=== PATIENT | female | born 1970 | race African-American/Black ===

== ENCOUNTER 2021-05-14 00:02 | Emergency (ER) | payer MEDICAID, OTHER ==
[~2021-05-14] VITALS: Ht 185.4 cm; Wt 87.1 kg
[2021-05-14 00:02] VITALS: BP 214/105
[2021-05-14] MEDS ORDERED: cloNIDine HCL 0.1 MG TAB PO ONE (01:15)
== END 2021-05-14 05:29 | disposition left against medical advice (07) ==
LOC: ER 00:02
DX: M54.5 Low back pain (principal); Z53.21 Procedure and treatment not carried out due to patient leaving prior to being seen by health care provider; X50.1XXA Overexertion from prolonged static or awkward postures, initial encounter; Y93.89 Activity, other specified; Y92.89 Other specified places as the place of occurrence of the external cause; Y99.8 Other external cause status

== ENCOUNTER → 2024-06-23 | Outpatient (CLI) | payer MEDICAID | END | disposition home or self-care (01) | LOC: Rad HDHVI 15:55 | PROVIDERS: ATTEND Internal Medicine Cardiovascular Disease | DX: I11.9 Hypertensive heart disease without heart failure (principal) | CPT/HCPCS: 93306 ==

== ENCOUNTER 2025-09-04 03:33 | Inpatient (IN) | payer MEDICAID ==
[~2025-09-04] VITALS: Ht 180.3 cm; Wt 78.2 kg
--- NOTE | 2025-09-04 04:04 | ED.PDOC ---
HPI Comments 54 year old female came to ER via EMS due to chest pains. Patient has history of hypertension, dyslipidemia, CVA 3x with left sided residuals. Patient is bed bound. About 2 hours prior to arrival, she developed chest pains, left sided, pressure, non radiating, 6/10 intensity. Blood pressure the was 190/110 mmHg REVIEW OF SYSTEMS: General: No fever, no chills, or fatigue HEENT: No sore throat, no earache, no congestion, no neck pain. Cardiac: (+) chest pain. No palpitations. Lungs: No shortness of breath, no cough. GI: No nausea, no vomiting, no diarrhea, no constipation, no abdominal pain : No dysuria, frequency, or urgency. No hematuria. Musculoskeletal: No joint pain , no joint swelling, no extremity edema. Skin: No rash, no itching. Neuro: No headache, no dizziness, no weakness EXAM: General: Awake, alert and oriented. No acute distress. Skin: Skin in warm, dry and intact. Appropriate color for ethnicity. HEENT: The head is normocephalic and atraumatic. Conjunctivae are clear without exudates or hemorrhage. Sclera is non-icteric. EOM are intact. No signs of nystagmus. Eyelids are normal in appearance without swelling or lesions. Oral mucosa is pink and moist Neck: The neck is supple with normal range of motion. No JVD. Cardiac: Heart rate and rhythm are normal. No murmurs, gallops, or rubs are auscultated. Positive anterior chest wall tenderness Respiratory: No signs of respiratory distress. Lung sounds are clear in all lobes bilaterally without rales, rhonchi, or wheezes. Abdominal: Abdomen is soft, non-tender without distention. Bowel sounds are present and normoactive in all four quadrants. Neurological: The patient is awake, alert and oriented to person, place, and time with normal speech. Speech is clear. There is no facial asymmetry. Left- sided deficits, chronic Psychiatric: Appropriate mood and affect. Good judgement and insight Chief Complaint: Chest Pain Time Seen by MD: 04:04 Reviewed Notes: Nurses Notes, Tube Dispatcher Notes Allergies: Coded Allergies: Morphine (Verified Allergy, Unknown, 03/31/24) Information Source: Patient Mode of Arrival: EMS Severity: Moderate Timing: Hours Duration: Intermittent Past Medical History PAST MEDICAL HISTORY: CKF, CVA, High Lipids, HTN Past Medical History (Other): Bedbound Surgical History: Denies all surgeries SALES PROPERTY MANAGER History: Denies all SALES PROPERTY MANAGER Hx Family History Family History: Reviewed,noncontributory to illness Social History Smoker: Non-Smoker Alcohol: Denies ETOH Use Drugs: Denies Drug Use Lives In: Home EKG EKG : Comments Sinus bradycardia No STEMI. Was a procedure done? Was a procedure done?: No CP Differential Dx Differential Diagnosis: Anxiety / Panic Attack Differential Diagnosis: Angina, Chest Wall Pain, Costochondritis, Esophageal reflux/spasm, Gastritis, Myocardial Infarction X-Ray, Labs, Meds, VS Vital Signs Date Time Temp Pulse Resp B/P (MAP) Pulse Ox O2 Delivery O2 Flow Rate FiO2 09/04/25 05:22 46 09/04/25 04:30 48 11 153/81 (105) 99 09/04/25 04:15 53 Room Air* 0 21 09/04/25 04:15 97.8 53 8 169/103 (125) 98 97.8 09/04/25 03:39 52 09/04/25 03:35 97.8 50 18 182/114 98 97.8 Lab Test 09/04/25 04:50 09/04/25 03:45 Range/Units Troponin I High Sensitivity 10 11 </=34 ng/L White Blood Count 4.7 4.4-10.8 10^3/uL Red Blood Count 3.75 L 4.0-5.20 10^6/uL Hemoglobin 11.3 L 12.2-16.2 g/dL Hematocrit 34.1 L 36.0-46.0 % Mean Corpuscular Volume 90.8 80.0-100.0 fL Mean Corpuscular Hemoglobin 30.2 28.0-32.0 pg Mean Corpuscular Hemoglobin Concent 33.2 32.0-36.0 g/dL Red Cell Distribution Width 13.4 11.8-14.3 % Platelet Count 334 140-450 10^3/uL Mean Platelet Volume 7.6 6.9-10.8 fL Neutrophils (%) (Auto) 53.3 37.0-80.0 % Lymphocytes (%) (Auto) 34.9 10.0-50.0 % Monocytes (%) (Auto) 8.2 0.0-12.0 % Eosinophils (%) (Auto) 3.2 0.0-7.0 % Basophils (%) (Auto) 0.4 0.0-2.0 % Neutrophils # (Auto) 2.5 1.6-8.6 10 ^3/uL Lymphocytes # (Auto) 1.6 0.4-5.4 10 ^3/uL Monocytes # (Auto) 0.4 0-1.3 10 ^3/uL Eosinophils # (Auto) 0.1 0-0.8 10 ^3/uL Basophils # (Auto) 0 0-0.2 10 ^3/uL Nucleated Red Blood Cells 0.0 % Sodium Level 140 136-145 mmol/L Potassium Level 4.1 3.5-5.1 mmol/L Chloride Level 102 98-107 mmol/L Carbon Dioxide Level 30 20-31 mmol/L Anion Gap 8 5-15 Blood Urea Nitrogen 17 9-23 mg/dL Creatinine 1.10 H 0.550-1.02 mg/dL Glomerular Filtration Rate Calc 60 >90 mL/min BUN/Creatinine Ratio 15.5 10.0-20.0 Serum Glucose 102 74-106 mg/dL Calcium Level 9.9 8.7-10.4 mg/dL B-Type Natriuretic Peptide 20.98 0-100 pg/mL Current Medications Medications (Trade) Dose Ordered Sig/Julienne Route Start Time Stop Time Status Last Admin Aspirin 324 mg ONCE ONCE PO 09/04/25 03:45 09/04/25 03:46 DC 09/04/25 04:14 Time of 1ST Reevaluation: 03:51 Reevaluation 1ST: Unchanged Patient Education/Counseling: Need For Follow Up Family Education/Counseling: No Family Present SEPSIS Sepsis Screen Physician Orders Electrocardigram (09/04/25 03:41) Electrocardigram (09/04/25 04:41) Electrocardigram (09/04/25 06:41) Chest Xray 1 View (09/04/25 03:43) Vital Signs Q1HR (09/04/25 03:43) Saline Lock (09/04/25 03:43) Center Customer Service Associate (09/04/25 ) Troponin-I Hs (09/04/25 06:43) Vital Signs Date Time Temp Pulse Resp B/P (MAP) Pulse Ox O2 Delivery O2 Flow Rate FiO2 09/04/25 05:22 46 09/04/25 04:30 48 11 153/81 (105) 99 09/04/25 04:15 53 Room Air* 0 21 09/04/25 04:15 97.8 53 8 169/103 (125) 98 97.8 09/04/25 03:39 52 09/04/25 03:35 97.8 50 18 182/114 98 97.8 Laboratory Tests Test 09/04/25 03:45 White Blood Count 4.7 10^3/uL (4.4-10.8) Medications Medications Dose Ordered Sig/Julienne Route Start Time Stop Time Status Last Admin Dose Admin Aspirin 324 mg ONCE ONCE PO 09/04/25 03:45 09/04/25 03:46 DC 09/04/25 04:14 Departure 1 Departure Time of Disposition: 04:45 Impression: Primary Impression: Chest pain Disposition: ADMITTED INPATIENT Condition: Stable Comments 54-year-old female with multiple risk factors and ongoing chest pain Patient admitted to hospitalist service for further treatment, evaluation and monitoring. Critical Care Note Critical Care Time?: Yes (35 min-critical care time only) Critical care comment: chest pain Stability Stability form required: No Heart Score Heart Score: Heart Score Response (Comments) Value History Moderate Suspicious 1 EKG Repolarization Disturb 1 Age 45-64 1 Risk Factors 1 or 2 risk factors 1 Troponin Normal limit 0 Total 4 I personally scribed for ZARA HILL MD ([email or web address]) on 09/04/25 at 04:04. Electronically submitted by Cr Martínez ([email or web address]). ZARA HILL MD Sep 04, 2025 04:04
[2025-09-04 04:13] LABS: Hematocrit 34.1 % (36.0-46.0); Hemoglobin 11.3 g/dL (12.2-16.2); Mean Corpuscular Hemoglobin 30.2 pg (28.0-32.0); Mean Corpuscular Volume 90.8 fL (80.0-100.0); Nucleated Red Blood Cells % 0.0 %
[2025-09-04 04:15] VITALS: PULSE 53
--- NOTE | 2025-09-04 04:16 | DVH ---
CHEST RADIOGRAPH Indication: cp Technique: Single frontal view of the chest was obtained COMPARISON: None FINDINGS: Lines and Tubes: None Lungs: Clear Pleura: No effusion. No pneumothorax. Cardiomediastinal contours: Unremarkable Bones: Unremarkable IMPRESSION: 1. No acute disease.
[2025-09-04 04:36] LABS: Anion Gap 8 (5-15); Carbon Dioxide 30 mmol/L (20-31); Chloride 102 mmol/L (98-107); Potassium 4.1 mmol/L (3.5-5.1); Sodium 140 mmol/L (136-145)
[2025-09-04 04:37] LABS: Calcium 9.9 mg/dL (8.7-10.4)
[2025-09-04 04:42] LABS: BUN/Creatinine Ratio 15.5 (10.0-20.0); Blood Urea Nitrogen 17 mg/dL (9-23); Glucose 102 mg/dL (74-106)
--- NOTE | 2025-09-04 05:55 | DVHHP2 ---
History of Present Illness Reason for Visit: Acute chest pain History of Present Illness The patient is a 54-year-old female bed-bound with past medical history of CKD, CVA 3 times with left-sided residuals, hyperlipidemia, and hypertension who presented to [facility] ED with complaint of chest pain associated with shortness of breaths. Patient reports experiencing left-sided chest pain, pressure in nature, rating 6/10 numeric scale, elevated blood pressure with systolic in the 190s, getting worse that prompted this visit. Patient was seen and evaluated in the ED, laboratory data shows WBC 4.7, hemoglobin 11.3, hematocrit 34.1, platelets 334, sodium 140, potassium 4.1, BUN 17, creatinine 1.10, glucose 102, calcium 9.9, troponin 10, BNP 20.98, blood pressure 189/103 trending down to 153/81, heart rate 53, temperature 97.8 F, O2 saturation 99% on room air. Chest x-ray show no acute disease. Please see medication orders section in the computer. On my assessment, patient denied chest pain at this moment, no headache, dizziness, diaphoresis, shortness of breaths, no diarrhea, nausea, vomiting, fever, no chills. Patient was admitted for further evaluation and medical management. Past Medical History CKD, CVA, High Lipids, HTN Past Surgical History Denies all surgeries Family History Reviewed, noncontributory to the management of this case. Past Social History The patient lives at home, denies smoking, alcohol or illicit drugs abuse. Review of Systems Constitutional: Yes: Weakness; No: Fever, Chills, Sweats, Malaise, Other Eyes: No: Pain, Vision change, Conjunctivae inflammation, Eyelid inflammation, Other, Redness ENT: No: Ear pain, Ear discharge, Nose pain, Nose discharge, Nose congestion, Mouth pain, Mouth swelling, Throat pain, Throat swelling, Other Respiratory: No: Cough, Dry, Shortness of breath, SOB with excertion, Wheezing, Hemoptysis, Pleuritic Pain, Sputum, Wheezing, Other Cardiovascular: Chest Pain; No: Palpitations, Orthopnea, Paroxysmal Noc. Dyspnea, Edema, Lt Headedness, Other Gastrointestinal: No: Nausea, Vomiting, Abdominal Pain, Diarrhea, Constipation, Melena, Hematochezia, Other Genitourinary: No Dysuria, No Frequency, No Incontinence, No Hematuria, No Retention, No Other Musculoskeletal: other (Bed-bound); No: neck pain, shoulder pain, arm pain, ba ck pain, hand pain, leg pain, foot pain Skin: No: Rash, Lesions, Jaundice, Bruising, Other Neurological: Weakness (Left-sided); No: Numbness, Incoordination, Change in speech, Confusion, Seizures, Other Allergies: Coded Allergies: Morphine (Verified Allergy, Unknown, 03/31/24) Exam Vital Signs Vital Signs Date Time Temp Pulse Resp B/P (MAP) Pulse Ox O2 Delivery O2 Flow Rate FiO2 09/04/25 05:22 46 09/04/25 04:30 11 153/81 (105) 99 09/04/25 04:15 Room Air* 0 21 09/04/25 04:15 97.8 97.8 General Appearance: Alert, Oriented X3, Cooperative, No acute distress HEENT: Atraumatic, PERRLA, EOMI, Mucous membr. moist/pink Respiratory: Normal air movement Cardiovascular: Regular rate, Normal S1, Normal S2, No murmurs Abdominal: Normal bowel sounds, Soft, No tenderness, No hepatospenomegaly, No masses Extremities: No clubbing, No cyanosis, No edema, Normal pulses, No tenderness/swelling, Other (Left-sided residuals) Skin: No rashes, No significant lesion Neuro: Normal speech, Normal tone, Sensation intact, Cranial nerves 3-12 NL, Reflexes 2+, Other (Generalized weakness) Psych/Mental Status: Mental status NL, Mood NL Labs/Xrays Labs Test 09/04/25 04:50 09/04/25 03:45 Range/Units Troponin I High Sensitivity 10 </=34 ng/L White Blood Count 4.7 4.4-10.8 10^3/uL Red Blood Count 3.75 L 4.0-5.20 10^6/uL Hemoglobin 11.3 L 12.2-16.2 g/dL Hematocrit 34.1 L 36.0-46.0 % Mean Corpuscular Volume 90.8 80.0-100.0 fL Mean Corpuscular Hemoglobin 30.2 28.0-32.0 pg Mean Corpuscular Hemoglobin Concent 33.2 32.0-36.0 g/dL Red Cell Distribution Width 13.4 11.8-14.3 % Platelet Count 334 140-450 10^3/uL Mean Platelet Volume 7.6 6.9-10.8 fL Neutrophils (%) (Auto) 53.3 37.0-80.0 % Lymphocytes (%) (Auto) 34.9 10.0-50.0 % Monocytes (%) (Auto) 8.2 0.0-12.0 % Eosinophils (%) (Auto) 3.2 0.0-7.0 % Basophils (%) (Auto) 0.4 0.0-2.0 % Neutrophils # (Auto) 2.5 1.6-8.6 10 ^3/uL Lymphocytes # (Auto) 1.6 0.4-5.4 10 ^3/uL Monocytes # (Auto) 0.4 0-1.3 10 ^3/uL Eosinophils # (Auto) 0.1 0-0.8 10 ^3/uL Basophils # (Auto) 0 0-0.2 10 ^3/uL Nucleated Red Blood Cells 0.0 % Sodium Level 140 136-145 mmol/L Potassium Level 4.1 3.5-5.1 mmol/L Chloride Level 102 98-107 mmol/L Carbon Dioxide Level 30 20-31 mmol/L Anion Gap 8 5-15 Blood Urea Nitrogen 17 9-23 mg/dL Creatinine 1.10 H 0.550-1.02 mg/dL Glomerular Filtration Rate Calc 60 >90 mL/min BUN/Creatinine Ratio 15.5 10.0-20.0 Serum Glucose 102 74-106 mg/dL Calcium Level 9.9 8.7-10.4 mg/dL B-Type Natriuretic Peptide 20.98 0-100 pg/mL PATIENT: ROOSEVELT CANCINOACCT: [id number] UNIT: [id number] : 1970 LOC: ER ROOM / BED: / AGE / SEX: 54 / F ADM STATUS: REG ER SERVICE [id number] ORDERING PHYSICIAN: ZARA HILL MD PROCEDURE(s): CXR1 - CHEST XRAY 1 VIEW REASON: cp ORDER NUMBER(s): [id number], ACCESSION NUMBER(s): [id number] CHEST RADIOGRAPH Indication: cp Technique: Single frontal view of the chest was obtained COMPARISON: None FINDINGS: Lines and Tubes: None Lungs: Clear Pleura: No effusion. No pneumothorax. Cardiomediastinal contours: Unremarkable Bones: Unremarkable IMPRESSION: 1. No acute disease. SEPSIS Sepsis Screen Date sepsis recognized/suspect: Sep 04, 2025 Time Sepsis recognized/suspect: 334 Recent Procedure: No On Antibiotic Therapy: No Respiratory Rate >20: No Heart Rate >90: No Temp<36 C (96.8 F) or >38.3 C: No SBP <90 or MAP <65 mmHG: No New Acute Mental Status Change: No Is the patient on CPAP, BIPAP,: No Physician Orders Electrocardigram (09/04/25 03:41) Electrocardigram (09/04/25 04:41) Electrocardigram (09/04/25 06:41) Chest Xray 1 View (09/04/25 03:43) Vital Signs Q1HR (09/04/25 03:43) Saline Lock (09/04/25 03:43) Tool Room Supervisor (09/04/25 ) Troponin-I Hs (09/04/25 06:43) Complete Blood Count (09/04/25 05:49) Comprehensive Metabolic Panel (09/04/25 05:49) Atorvastatin (Lipitor) (09/04/25 22:00) Aspirin Tablet (09/04/25 10:00) Hydralazine Injection (Apresoline Inject (09/04/25 06:00) Admit (09/04/25 05:49) Allergies (09/04/25 05:49) Code Status (09/04/25 05:49) Sodium Chloride Lock (Saline Lock Ns) (09/04/25 06:00) Oxygen Per Hour (09/04/25 05:49) Hydrocodone-Acet 5/325mg Tab (Whitetail 5/32 (09/04/25 06:00) Ondansetron Hcl (Zofran) (09/04/25 06:00) Docusate Sodium Capsule (Colace Capsule) (09/04/25 06:00) Fall Risk Precautions In Place QSHIFT (09/04/25 05:49) Complete Blood Count (09/05/25 04:00) Comprehensive Metabolic Panel (09/05/25 04:00) Cardiac Diet-2gna,Lofat,Lochol (09/04/25 Breakfast) Condition: Serious (09/04/25 05:49) Acetaminophen Tablet (Tylenol Tablet) (09/04/25 06:00) Vital Signs Date Time Temp Pulse Resp B/P (MAP) Pulse Ox O2 Delivery O2 Flow Rate FiO2 09/04/25 05:22 46 09/04/25 04:30 48 11 153/81 (105) 99 09/04/25 04:15 53 Room Air* 0 21 09/04/25 04:15 97.8 53 8 169/103 (125) 98 97.8 09/04/25 03:39 52 09/04/25 03:35 97.8 50 18 182/114 98 97.8 Laboratory Tests Test 09/04/25 03:45 White Blood Count 4.7 10^3/uL (4.4-10.8) Medications Medications Dose Ordered Sig/Julienne Route Start Time Stop Time Status Last Admin Dose Admin Aspirin 324 mg ONCE ONCE PO 09/04/25 03:45 09/04/25 03:46 DC 09/04/25 04:14 324 MG Assessment/Plan Assessment/Plan Acute chest pain Hypertensive urgency Generalized weakness Plan 1. Admit to telemetry units 2. Breathing treatment 3. Pain control management 4. Management of fluids and electrolytes 5. Consultation for hospitalist 6. Diagnostic tests chest x-ray 7. DVT prophylaxis-on aspirin 8. Repeat labs CBC, CMP in a.m. 9. Continue with current medical management 10. Treatment plan discussed with patient and RN. Patient verbalized understanding. Plan discussed with: Patient, Other (RN) My Orders Orders - JOSÉ MIGUEL CELAYA DNP Procedure Category Date Status Time Complete Blood Count LAB 09/04/25 Verified 05:49 Comprehensive LAB 09/04/25 Verified Metabolic Panel 05:49 Atorvastatin (Lipitor) PHA 09/04/25 Verified 22:00 Aspirin Tablet PHA 09/04/25 Verified 10:00 Hydralazine Injection PHA 09/04/25 Verified (Apresoline Inject 06:00 Admit ADMIT 09/04/25 Verified 05:49 Allergies CRISTIAN 09/04/25 Verified 05:49 Code Status CODE 09/04/25 Verified 05:49 Sodium Chloride Lock PHA 09/04/25 Verified (Saline Lock Ns) 06:00 Oxygen Per Hour RT 09/04/25 Verified 05:49 Hydrocodone-Acet PHA 09/04/25 Verified 5/325mg Tab (Whitetail 06:00 Ondansetron Hcl PHA 09/04/25 Verified (Zofran) 06:00 Docusate Sodium PHA 09/04/25 Verified Capsule (Colace 06:00 Fall Risk Precautions CRISTIAN 09/04/[address] 05:49 Complete Blood Count LAB 09/05/25 Verified 04:00 Comprehensive LAB 09/05/25 Verified Metabolic Panel 04:00 Cardiac DIET 09/04/25 Verified Diet-2gna,Lofat,Lochol Breakfast Condition: Serious CRISTIAN 09/04/25 Verified 05:49 Acetaminophen Tablet PHA 09/04/25 Verified (Tylenol Tablet) 06:00 Problem List: (1) Acute chest pain (2) Hypertensive urgency (3) Generalized weakness Date of Service: Sep 04, 2025 Billing Provider: JOSÉ MIGUEL CELAYA DNP Common Visit Codes: [id number] INP/OBS CARE (HIGH) JOSÉ MIGUEL CELAYA DNP Sep 04, 2025 05:55
[2025-09-04] MEDS ORDERED: ONDANSETRON HCL 4 MG/2 ML VIAL IV PRN (06:00)
[2025-09-04] MEDS ORDERED: NITROGLYCERIN 0.4 MG SL TAB SL PRN (06:00)
[2025-09-04] MEDS ORDERED: ACETAMINOPHEN 325 MG TAB PO PRN (06:00)
[2025-09-04] MEDS: SODIUM CHLOR 0.9% PF (SALINE LOCK) 10ML VIAL/SYR IV SCH (06:01)
[2025-09-04 07:31] LABS: Hematocrit 37.9 % (36.0-46.0); Hemoglobin 12.8 g/dL (12.2-16.2); Mean Corpuscular Hemoglobin 30.6 pg (28.0-32.0); Mean Corpuscular Volume 90.6 fL (80.0-100.0); Nucleated Red Blood Cells % 0.1 %
[2025-09-04 08:11] LABS: Alanine Aminotransferase 15 U/L (7-40); Albumin 4.4 g/dL (3.2-4.8); Alkaline Phosphatase 91 U/L (46-116); Anion Gap 9 (5-15); BUN/Creatinine Ratio 13.8 (10.0-20.0); Blood Urea Nitrogen 15 mg/dL (9-23); Calcium 9.9 mg/dL (8.7-10.4); Carbon Dioxide 26 mmol/L (20-31); Chloride 104 mmol/L (98-107); Glucose 94 mg/dL (74-106); Potassium 3.7 mmol/L (3.5-5.1); Sodium 139 mmol/L (136-145); Total Protein 7.8 g/dL (5.7-8.2)
[2025-09-04 08:12] LABS: Bilirubin, Total 0.4 mg/dL (0.2-1.0)
[2025-09-04 08:20] VITALS: PULSE 47; RESP 16; O2SAT 98
--- NOTE | 2025-09-04 14:40 | DVHPN2 ---
Subjective Patient continues to report having left-sided chest pain, described as squeezing, radiating 04/21. Reviewed: Care Plan, H&P, Labs, Medications, Previous Orders Changes from previous H/P or p: No Changes General: Per HPI Eyes: No Pain, No Vision change, No Conjunctivae inflammation, No Eyelid inflammation, No Other, No Redness ENT: No Ear pain, No Ear discharge, No Nose pain, No Nose discharge, No Nose congestion, No Mouth pain, No Mouth swelling, No Throat pain, No Throat swelling, No Other Cardiovascular: Chest Pain; No Palpitations, No Orthopnea, No Paroxysmal Noc. Dyspnea, No Edema, No Lt Headedness, No Other Respiratory: No Cough, No Dry, No Shortness of breath, No SOB with excertion, No Wheezing, No Hemoptysis, No Pleuritic Pain, No Sputum, No Other Gastrointestinal: No Nausea, No Vomiting, No Abdominal Pain, No Diarrhea, No Constipation, No Melena, No Hematochezia, No Other Genitourinary: No Dysuria, No Frequency, No Incontinence, No Hematuria, No Retention, No Other Musculoskeletal: other (Bed-bound); No neck pain, No shoulder pain, No arm pain, No back pain, No hand pain, No leg pain, No foot pain Skin: No Rash, No Lesions, No Jaundice, No Bruising, No Other Objective Vitals Vital Signs Date Time Temp Pulse Resp B/P (MAP) Pulse Ox O2 Delivery O2 Flow Rate FiO2 09/04/25 12:32 97.5 50 13 151/76 (101) 100 97.5 09/04/25 08:20 Room Air* 0 21 General Appearance: Alert, Oriented X3, Cooperative, mild distress HEENT: Atraumatic, PERRLA Lungs: Clear to auscultation, Normal air movement Cardiovascular: Normal S1, Normal S2 Abdomen: Normal bowel sounds, Soft, No tenderness, No hepatospenomegaly Genitourinary: No Apparent Abnormalities Musculoskeletal: Other (Left-sided hemiparesis) Psych/Mental Status: Mental status NL, Mood NL Medications Current Medications Medications Dose Ordered Sig/Julienne Route Start Time Stop Time Status Last Admin Dose Admin Atorvastatin Calcium 10 mg HS PO 09/04/25 22:00 Aspirin 81 mg DAILY PO 09/04/25 10:00 09/04/25 10:23 81 MG Hydralazine HCl 10 mg Q6HP PRN IV 09/04/25 06:00 Sodium Chloride 10 ml Q8HR IV 09/04/25 06:00 09/04/25 14:23 10 ML Acetaminophen/ Hydrocodone Bitart 1 tab Q4HP PRN PO 09/04/25 06:00 Ondansetron HCl 4 mg Q4HP PRN IV 09/04/25 06:00 Docusate Sodium 100 mg BIDPRN PRN PO 09/04/25 06:00 Acetaminophen 650 mg Q6HP PRN PO 09/04/25 06:00 Nitroglycerin 0.4 mg Q5MINP PRN SL 09/04/25 06:00 Laboratory Results Laboratory Tests 09/04/25 07:12 Chemistry Test 09/04/25 03:45 09/04/25 07:12 Calcium Level 9.9 mg/dL (8.7-10.4) 9.9 mg/dL (8.7-10.4) Albumin 4.4 g/dL (3.2-4.8) Total Protein 7.8 g/dL (5.7-8.2) Cardiac Markers Test 09/04/25 03:45 B-Type Natriuretic Peptide 20.98 pg/mL (0-100) LFT Test 09/04/25 07:12 Alanine Aminotransferase (ALT) 15 U/L (7-40) Alkaline Phosphatase 91 U/L (46-116) Aspartate Amino Transferase (AST) 14 U/L (13-40) Total Bilirubin 0.4 mg/dL (0.2-1.0) Labs and/or images reviewed: Labs reviewed by me, Image(s) reviewed by me Assessment/Plan Assessment/Plan Impression: -acute coronary syndrome -history of CVA with left-sided hemiparesis -bed-bound status -hypertensive crisis -? Tachy-adrian syndrome Plan: -cardiology consultation -antihypertensives, hold beta blockers -statin -echocardiogram -PUD/DVT prophylaxis -repeat labs in a.m. Total time spent with patient discussing and formulating plan of care: 35 minutes. This medical document was created using an electronic medical record system with [employer] system. Although this document has been carefully reviewed, there may still be some phonetic and typographical errors. These areas are purely typographical due to imperfections of the software programs, and do not reflect any compromise in the patient's medical care. Plan discussed with: Patient, Other (RN) Date of Service: Sep 04, 2025 Billing Provider: SATISH LINARES NP Common Visit Codes: [id number] INP/OBS CARE(HIGH) SATISH LINARES NP Sep 04, 2025 14:40
[2025-09-04] MEDS: LOSARTAN POTASSIUM 50 MG TAB PO ONE (15:42)
[2025-09-04] MEDS: HYDROcodone-ACET 5/325MG TAB PO PRN (17:38)
[2025-09-04] MEDS: hydrALAZINE HCL 20 MG/ML VL IV PRN (18:19)
[2025-09-04] MEDS: ATORVASTATIN 20 MG TAB PO SCH (22:49)
[2025-09-05] VITALS (9 sets, daily range): BP systolic 134–188; BP diastolic 78–110; PULSE 68–90; RESP 17–19; TEMP 97.2–98.3; O2SAT 90–98
[2025-09-05] MEDS ORDERED: HYDR-4902 PO (03:52)
[2025-09-05] MEDS ORDERED: BACL10TA PO (03:52)
[2025-09-05] MEDS: BACLOFEN 10 MG TAB PO PRN (06:37)
[2025-09-05 07:11] LABS: Hematocrit 35.4 % (36.0-46.0); Hemoglobin 12.3 g/dL (12.2-16.2); Mean Corpuscular Hemoglobin 30.6 pg (28.0-32.0); Mean Corpuscular Volume 88.2 fL (80.0-100.0); Nucleated Red Blood Cells % 0.1 %
[2025-09-05 07:32] LABS: Alanine Aminotransferase 15 U/L (7-40); Albumin 4.1 g/dL (3.2-4.8); Alkaline Phosphatase 84 U/L (46-116); Anion Gap 10 (5-15); BUN/Creatinine Ratio 17.3 (10.0-20.0); Bilirubin, Total 0.4 mg/dL (0.2-1.0); Blood Urea Nitrogen 19 mg/dL (9-23); Calcium 9.6 mg/dL (8.7-10.4); Carbon Dioxide 27 mmol/L (20-31); Chloride 102 mmol/L (98-107); Glucose 89 mg/dL (74-106); Potassium 3.6 mmol/L (3.5-5.1); Sodium 139 mmol/L (136-145); Total Protein 7.1 g/dL (5.7-8.2)
[2025-09-05] MEDS: LOSARTAN POTASSIUM 50 MG TAB PO SCH (09:23)
[2025-09-05 09:31] LABS: Triglycerides 135.0 mg/dL (< 150)
[2025-09-05 09:32] LABS: Magnesium 1.7 mg/dL (1.6-2.6)
[2025-09-05 09:33] LABS: Cholesterol 145.0 mg/dL (< 200); HDL Cholesterol 42.0 mg/dL (40-59)
--- NOTE | 2025-09-05 13:29 | DVHPN2 ---
Subjective Patient denies any pain Reviewed: Care Plan, H&P, Labs, Medications, Previous Orders Changes from previous H/P or p: Changes General: Per HPI Eyes: No Pain, No Vision change, No Conjunctivae inflammation, No Eyelid inflammation, No Other, No Redness ENT: No Ear pain, No Ear discharge, No Nose pain, No Nose discharge, No Nose congestion, No Mouth pain, No Mouth swelling, No Throat pain, No Throat swelling, No Other Cardiovascular: Chest Pain; No Palpitations, No Orthopnea, No Paroxysmal Noc. Dyspnea, No Edema, No Lt Headedness, No Other Respiratory: No Cough, No Dry, No Shortness of breath, No SOB with excertion, No Wheezing, No Hemoptysis, No Pleuritic Pain, No Sputum, No Other Gastrointestinal: No Nausea, No Vomiting, No Abdominal Pain, No Diarrhea, No Constipation, No Melena, No Hematochezia, No Other Genitourinary: No Dysuria, No Frequency, No Incontinence, No Hematuria, No Retention, No Other Musculoskeletal: other (Bed-bound); No neck pain, No shoulder pain, No arm pain, No back pain, No hand pain, No leg pain, No foot pain Skin: No Rash, No Lesions, No Jaundice, No Bruising, No Other Objective Vitals Vital Signs Date Time Temp Pulse Resp B/P (MAP) Pulse Ox O2 Delivery O2 Flow Rate FiO2 09/05/25 12:46 98.1 87 18 154/83 (106) 98 98.1 09/05/25 08:00 Room Air* 0 21 Intake/Output Intake and Output 09/05/25 07:00 Intake Total 0 ml Output Total 550 ml Balance -550 ml Intake Oral 0 ml Output Urine Total 550 ml General Appearance: Alert, Oriented X3, Cooperative, mild distress HEENT: Atraumatic, PERRLA Lungs: Clear to auscultation, Normal air movement Cardiovascular: Normal S1, Normal S2 Abdomen: Normal bowel sounds, Soft, No tenderness, No hepatospenomegaly Genitourinary: No Apparent Abnormalities Musculoskeletal: Other (Left-sided hemiparesis) Skin: Dry, Intact Psych/Mental Status: Mental status NL, Mood NL Medications Current Medications Medications Dose Ordered Sig/Julienne Route Start Time Stop Time Status Last Admin Dose Admin Atorvastatin Calcium 10 mg HS PO 09/04/25 22:00 09/04/25 22:49 10 MG Aspirin 81 mg DAILY PO 09/04/25 10:00 09/05/25 09:22 81 MG Hydralazine HCl 10 mg Q6HP PRN IV 09/04/25 06:00 09/05/25 07:18 10 MG Sodium Chloride 10 ml Q8HR IV 09/04/25 06:00 09/05/25 05:33 10 ML Acetaminophen/ Hydrocodone Bitart 1 tab Q4HP PRN PO 09/04/25 06:00 09/05/25 05:34 1 TAB Ondansetron HCl 4 mg Q4HP PRN IV 09/04/25 06:00 Docusate Sodium 100 mg BIDPRN PRN PO 09/04/25 06:00 Acetaminophen 650 mg Q6HP PRN PO 09/04/25 06:00 Nitroglycerin 0.4 mg Q5MINP PRN SL 09/04/25 06:00 Losartan Potassium 50 mg DAILY PO 09/05/25 10:00 09/05/25 09:23 50 MG Baclofen 10 mg Q8HP PRN PO 09/05/25 04:15 09/05/25 06:37 10 MG Laboratory Results Laboratory Tests 09/05/25 06:31 Chemistry Test 09/05/25 06:31 Albumin 4.1 g/dL (3.2-4.8) Calcium Level 9.6 mg/dL (8.7-10.4) Magnesium Level 1.7 mg/dL (1.6-2.6) Total Protein 7.1 g/dL (5.7-8.2) Lipid panel Test 09/05/25 06:31 Cholesterol Level 145 mg/dL (< 200) HDL Cholesterol 42 mg/dL (40-59) Triglycerides Level 135 mg/dL (< 150) LFT Test 09/05/25 06:31 Alanine Aminotransferase (ALT) 15 U/L (7-40) Alkaline Phosphatase 84 U/L (46-116) Aspartate Amino Transferase (AST) 13 U/L (13-40) Total Bilirubin 0.4 mg/dL (0.2-1.0) HgA1c, TSH Test 09/05/25 06:31 Hemoglobin A1c 5.0 % A1C (<5.7) Thyroid Stimulating Hormone (TSH) 0.63 uIU/mL (0.55-4.78) Labs and/or images reviewed: Labs reviewed by me, Image(s) reviewed by me Assessment/Plan Assessment/Plan Impression: -acute coronary syndrome -history of CVA with left-sided hemiparesis -bed-bound status -hypertensive crisis -? Tachy-adrian syndrome Plan: -cardiology consultation : Recommendations appreciated -PT evaluation -antihypertensives, hold beta blockers -statin : Pending -echocardiogram -PUD/DVT prophylaxis Social service consultation for possible SNF placement Total time spent with patient discussing and formulating plan of care: 35 minutes. This medical document was created using an electronic medical record system with [employer] dictation system. Although this document has been carefully reviewed, there may still be some phonetic and typographical errors. These areas are purely typographical due to imperfections of the software programs, and do not reflect any compromise in the patient's medical care. Plan discussed with: Patient, Other (RN) My Orders Orders - SATISH LINARES NP Procedure Category Date Status Time Losartan Tablet PHA 09/05/25 In Process (Cozaar Tablet) 10:00 Mrsa Screen TANVI 09/05/25 In Process 00:08 * Design Drafter Chief CONS 09/05/25 Transmitted Consult 02:55 * Cardiology Consult CONS 09/05/25 Transmitted 10:46 Date of Service: Sep 05, 2025 Billing Provider: SATISH LINARES NP Common Visit Codes: [id number] INP/OBS CARE(HIGH) SATISH LINARES NP Sep 05, 2025 13:29
--- NOTE | 2025-09-05 13:53 | DVHSR ---
APPROVED REPORT EXAM: LIMITED Two-dimensional and M-mode echocardiogram. Blood Pressure: 188/110 mmHg INDICATION Evaluate Cardiac Function RISK FACTORS Height: 5' 11", Weight: 172 DIMENSIONS LVDd3.7 (3.8-5.7cm)LA (2D)3.9 (1.9-4.0cm)Aortic Root (2.0-3.7cm) LVDs2.4 (2.5-4.0cm)LA (MM) (1.9-4.0cm)Aortic Cusp Exc (1.5-2.0cm) EF (%) 60.0 (55-70%)Rt. Atrium2.9 (1.9-4.0cm)Asc. Aorta cm IVSd1.7 (0.7-1.1cm)RV (D) (1.8-2.4cm) PWd1.5 (0.7-1.1cm) Mitral Valve MitralMitral Stenosis E/A ratio0.02D MVAcm2 Aortic Valve Aortic ValveAortic Stenosis LVOT Diameter2.5 (1.8-2.4cm)Doppler AVAcm2 Other Information Quality : Technically LimitedRhythm : Technically limited study due to body habitus, patient has left sided deficit from strokes, can not move or turn. Conclusion lvef 60% moderate LVH normal rv function moderate pericardial effusion, circumferential, no HD compromise
[2025-09-05] MEDS: DOCUSATE SOD 100 MG CAP PO PRN (21:18)
[2025-09-06] VITALS (8 sets, daily range): BP systolic 139–186; BP diastolic 67–101; PULSE 77–100; RESP 18–20; TEMP 97.8–98.4; O2SAT 90–100
[2025-09-06] MEDS: ENOXAPARIN SOD 40 MG/0.4 ML SYRINGE SC SCH (09:27)
--- NOTE | 2025-09-06 14:54 | DVHPN2 ---
Subjective Patient reporting spasming to left lower extremity Reviewed: Care Plan, H&P, Labs, Medications, Previous Orders Changes from previous H/P or p: Changes General: Per HPI Eyes: No Pain, No Vision change, No Conjunctivae inflammation, No Eyelid inflammation, No Other, No Redness ENT: No Ear pain, No Ear discharge, No Nose pain, No Nose discharge, No Nose congestion, No Mouth pain, No Mouth swelling, No Throat pain, No Throat swelling, No Other Cardiovascular: Chest Pain; No Palpitations, No Orthopnea, No Paroxysmal Noc. Dyspnea, No Edema, No Lt Headedness, No Other Respiratory: No Cough, No Dry, No Shortness of breath, No SOB with excertion, No Wheezing, No Hemoptysis, No Pleuritic Pain, No Sputum, No Other Gastrointestinal: No Nausea, No Vomiting, No Abdominal Pain, No Diarrhea, No Constipation, No Melena, No Hematochezia, No Other Genitourinary: No Dysuria, No Frequency, No Incontinence, No Hematuria, No Retention, No Other Musculoskeletal: other (Bed-bound); No neck pain, No shoulder pain, No arm pain, No back pain, No hand pain, No leg pain, No foot pain Skin: No Rash, No Lesions, No Jaundice, No Bruising, No Other Objective Vitals Vital Signs Date Time Temp Pulse Resp B/P (MAP) Pulse Ox O2 Delivery O2 Flow Rate FiO2 09/06/25 13:00 98.3 89 20 140/67 (91) 99 98.3 09/06/25 08:00 Room Air* 0 21 Intake/Output Intake and Output 09/06/25 07:00 Intake Total 860 ml Output Total 1200 ml Balance -340 ml Intake Oral 860 ml Output Urine Total 1200 ml # Bowel Movements 1 General Appearance: Alert, Oriented X3, Cooperative, mild distress HEENT: Atraumatic, PERRLA Lungs: Clear to auscultation, Normal air movement Cardiovascular: Normal S1, Normal S2 Abdomen: Normal bowel sounds, Soft, No tenderness, No hepatospenomegaly Genitourinary: No Apparent Abnormalities Musculoskeletal: Other (Left-sided hemiparesis) Skin: Dry, Intact Psych/Mental Status: Mental status NL, Mood NL Medications Current Medications Medications Dose Ordered Sig/Julienne Route Start Time Stop Time Status Last Admin Dose Admin Atorvastatin Calcium 10 mg HS PO 09/04/25 22:00 09/05/25 21:17 10 MG Aspirin 81 mg DAILY PO 09/04/25 10:00 09/06/25 09:28 81 MG Hydralazine HCl 10 mg Q6HP PRN IV 09/04/25 06:00 09/06/25 06:32 10 MG Sodium Chloride 10 ml Q8HR IV 09/04/25 06:00 09/06/25 14:27 10 ML Acetaminophen/ Hydrocodone Bitart 1 tab Q4HP PRN PO 09/04/25 06:00 09/06/25 13:40 1 TAB Ondansetron HCl 4 mg Q4HP PRN IV 09/04/25 06:00 Docusate Sodium 100 mg BIDPRN PRN PO 09/04/25 06:00 09/05/25 21:18 100 MG Acetaminophen 650 mg Q6HP PRN PO 09/04/25 06:00 Nitroglycerin 0.4 mg Q5MINP PRN SL 09/04/25 06:00 Losartan Potassium 50 mg DAILY PO 09/05/25 10:00 09/06/25 09:30 50 MG Baclofen 10 mg Q8HP PRN PO 09/05/25 04:15 09/05/25 23:07 10 MG Enoxaparin Sodium 40 mg DAILY SC 09/06/25 10:00 09/06/25 09:27 40 MG Amlodipine Besylate 10 mg DAILY PO 09/07/25 10:00 UNV Laboratory Results Laboratory Tests 09/05/25 06:31 Microbiology Microbiology Date/Time Source Procedure Growth Status 09/05/25 00:06 Nose MRSA Screen - Final Complete Labs and/or images reviewed: Labs reviewed by me, Image(s) reviewed by me Assessment/Plan Assessment/Plan Impression: -acute coronary syndrome -history of CVA with left-sided hemiparesis -bed-bound status -hypertensive crisis -? Tachy-adrian syndrome Plan: Events: No further bradycardic issues. Patient hypertensive. -continue losartan, add amlodipine 10 mg -start baclofen for leg spasms -cardiology consultation : Recommendations appreciated -PT evaluation -antihypertensives, hold beta blockers -echocardiogram : Reviewed -PUD/DVT prophylaxis Social service consultation for possible SNF placement Total time spent with patient discussing and formulating plan of care: 35 minutes. This medical document was created using an electronic medical record system with Dragon computerized dictation system. Although this document has been carefully reviewed, there may still be some phonetic and typographical errors. These areas are purely typographical due to imperfections of the software programs, and do not reflect any compromise in the patient's medical care. Plan discussed with: Patient, Other (RN) My Orders Orders - SATISH LINARES NP Procedure Category Date Status Time L Shoulder 2+ View XY 09/06/25 Logged Xray 14:46 Amlodipine Tablet PHA 09/06/25 Logged (Norvasc Tablet) 15:00 Amlodipine Tablet PHA 09/07/25 Logged (Norvasc Tablet) 10:00 Date of Service: Sep 06, 2025 Billing Provider: SATISH LINARES NP Common Visit Codes: [id number] INP/OBS CARE(HIGH) SATISH LINARES NP Sep 06, 2025 14:54
--- NOTE | 2025-09-06 16:27 | DVH ---
CLINICAL INDICATION: disclocation TECHNIQUE: 3 radiographic views of the left shoulder were obtained. Comparison: None FINDINGS/IMPRESSION: Bony alignment appears normal No fracture or dislocation is seen No abnormal soft tissue calcifications.
[2025-09-06] MEDS ORDERED: BACLOFEN 10 MG TAB PO SCH (22:00)
[2025-09-07] VITALS (7 sets, daily range): BP systolic 109–165; BP diastolic 75–110; PULSE 84–105; RESP 16–19; TEMP 97.7–98.3; O2SAT 96–100
--- NOTE | 2025-09-07 11:50 | ECG ---
[facility] Test Date: 2025-09-04 Test Time: 05:22:26 Pat Name: ROOSEVELT CANCINO Department: [facility] ED Patient ID: [id number] Room: 0296T B Gender: F Clinical Lab Assistant: COURTNEY : 1970 Requested By: ZARA HILL Order Number: [id number] Reading MD: Duane Lewis Measurements Intervals [place] Rate: 46 P: 81 [place]: 176 QRS: -1 QRSD: 108 T: 16 QT: 469 QTc: 411 Interpretive Statements Sinus bradycardia Abnormal R-wave progression, late transition Electronically Signed On 09-07-2025 14:56:27 PDT by Duane Lewis Please click the below link to view image of tracing.
--- NOTE | 2025-09-07 11:50 | ECG ---
[facility] Test Date: 2025-09-04 Test Time: 06:40:46 Pat Name: ROOSEVELT CANCINO Department: [facility] ED Patient ID: [facility]-[id number] Room: 0296T B Gender: F Transfusion Nurse: COURTNEY : 1970 Requested By: ZARA HILL Order Number: [id number] Reading MD: Duane Lewis Measurements Intervals [place] Rate: 158 P: 0 ME: 40 QRS: -18 QRSD: 94 T: 174 QT: 391 QTc: 634 Interpretive Statements Sinus tachycardia Ventricular tachycardia, unsustained Long R-R with ventricular escape Borderline left axis deviation Probable anterior infarct, age indeterminate Prolonged QT interval Electronically Signed On 09-07-2025 14:56:46 PDT by Duane Lewis Please click the below link to view image of tracing.
--- NOTE | 2025-09-07 11:50 | ECG ---
[facility] Test Date: 2025-09-04 Test Time: 03:39:55 Pat Name: ROOSEVELT CANCINO Department: [facility] ED Patient ID: [facility]-[id number] Room: 0296T B Gender: F Equipment Cleaner: COURTNEY : 1970 Requested By: ZARA HILL Order Number: [id number] Reading MD: Duane Lewis Measurements Intervals [place] Rate: 52 P: 90 DC: 178 QRS: 8 QRSD: 111 T: 22 QT: 446 QTc: 415 Interpretive Statements Sinus rhythm Ventricular premature complex Abnormal R-wave progression, late transition Electronically Signed On 09-07-2025 14:56:20 PDT by Duane Lewis Please click the below link to view image of tracing.
[2025-09-07] MEDS ORDERED: LOSA-535 PO (13:51)
[2025-09-07] MEDS ORDERED: AMLO1TAB23 PO (13:51)
--- NOTE | 2025-09-07 13:55 | DVHDS2 ---
Discharge Summary Date of Admission Sep 04, 2025 at 05:49 Date of Discharge: Sep 07, 2025 Admitting Diagnosis Chest pain Labs/Diagnostic Data: Laboratory Results Test 09/05/25 06:31 09/04/25 16:12 09/04/25 07:12 09/04/25 03:45 White Blood Count 4.2 10^3/uL (4.4-10.8) Red Blood Count 4.02 10^6/uL (4.0-5.20) Hemoglobin 12.3 g/dL (12.2-16.2) Hematocrit 35.4 % (36.0-46.0) Mean Corpuscular Volume 88.2 fL (80.0-100.0) Mean Corpuscular Hemoglobin 30.6 pg (28.0-32.0) Mean Corpuscular Hemoglobin Concent 34.7 g/dL (32.0-36.0) Red Cell Distribution Width 13.3 % (11.8-14.3) Platelet Count 343 10^3/uL (140-450) Mean Platelet Volume 7.7 fL (6.9-10.8) Neutrophils (%) (Auto) 57.0 % (37.0-80.0) Lymphocytes (%) (Auto) 30.6 % (10.0-50.0) Monocytes (%) (Auto) 8.6 % (0.0-12.0) Eosinophils (%) (Auto) 3.4 % (0.0-7.0) Basophils (%) (Auto) 0.4 % (0.0-2.0) Neutrophils # (Auto) 2.4 10 ^3/uL (1.6-8.6) Lymphocytes # (Auto) 1.3 10 ^3/uL (0.4-5.4) Monocytes # (Auto) 0.4 10 ^3/uL (0-1.3) Eosinophils # (Auto) 0.1 10 ^3/uL (0-0.8) Basophils # (Auto) 0 10 ^3/uL (0-0.2) Nucleated Red Blood Cells 0.1 % Sodium Level 139 mmol/L (136-145) Potassium Level 3.6 mmol/L (3.5-5.1) Chloride Level 102 mmol/L (98-107) Carbon Dioxide Level 27 mmol/L (20-31) Anion Gap 10 (5-15) Blood Urea Nitrogen 19 mg/dL (9-23) Creatinine 1.10 mg/dL (0.550-1.02) Glomerular Filtration Rate Calc 60 mL/min (>90) BUN/Creatinine Ratio 17.3 (10.0-20.0) Serum Glucose 89 mg/dL (74-106) Hemoglobin A1c 5.0 % A1C (<5.7) Calcium Level 9.6 mg/dL (8.7-10.4) Magnesium Level 1.7 mg/dL (1.6-2.6) Total Bilirubin 0.4 mg/dL (0.2-1.0) Aspartate Amino Transferase (AST) 13 U/L (13-40) Alanine Aminotransferase (ALT) 15 U/L (7-40) Alkaline Phosphatase 84 U/L (46-116) Total Protein 7.1 g/dL (5.7-8.2) Albumin 4.1 g/dL (3.2-4.8) Triglycerides Level 135 mg/dL (< 150) Cholesterol Level 145 mg/dL (< 200) LDL Cholesterol 73 mg/dL (< 100) HDL Cholesterol 42 mg/dL (40-59) Thyroid Stimulating Hormone (TSH) 0.63 uIU/mL (0.55-4.78) POC Glucose 82 mg/dl (70-106) Troponin I High Sensitivity 11 ng/L (</=34) B-Type Natriuretic Peptide 20.98 pg/mL (0-100) Other Laboratory Tests 09/05/25 06:31 Brief Hx & Hospital Course: History of Present Illness The patient is a 54-year-old female bed-bound with past medical history of CKD, CVA 3 times with left-sided residuals, hyperlipidemia, and hypertension who presented to [facility] ED with complaint of chest pain associated with shortness of breaths. Patient reports experiencing left-sided chest pain, pressure in nature, rating 6/10 numeric scale, elevated blood pressure with systolic in the 190s, getting worse that prompted this visit. Patient was seen and evaluated in the ED, laboratory data shows WBC 4.7, hemoglobin 11.3, hematocrit 34.1, platelets 334, sodium 140, potassium 4.1, BUN 17, creatinine 1.10, glucose 102, calcium 9.9, troponin 10, BNP 20.98, blood pressure 189/103 trending down to 153/81, heart rate 53, temperature 97.8 F, O2 saturation 99% on room air. Chest x-ray show no acute disease. Please see medication orders section in the computer. On my assessment, patient denied chest pain at this moment, no headache, dizziness, diaphoresis, shortness of breaths, no diarrhea, nausea, vomiting, fever, no chills. Patient was admitted for further evaluation and medical management. Course of hospitalization: Patient had titration of p.o. medications with cessation of all beta blockers. Patient's bradycardia has improved. Patient is currently on Cozaar 100 mg p.o. daily as well as amlodipine 10 mg p.o. daily with the patient's blood pressure markedly improved. Troponins has been negative x3. EKG unremarkable. Patient will be discharged home on home health services for physical therapy. Patient has been without any documented or reported chest pain since having blood pressure control. Physical examination General: Alert and Oriented x3. No acute distress. Well-nourished. Eyes: EOMI. Anicteric. HENT: Moist mucous membranes. Lungs: Clear to auscultation bilaterally. No accessory muscle use. Cardiovascular: Regular rate and rhythm. No murmur. No JVD. Abdomen: Soft, non-tender and non-distended. No palpable masses. Extremities: No edema. Non-tender. Skin: No rashes or lesions. Warm. Neurologic: No focal neurological deficits. CN II-XII grossly intact, but not individually tested. Psychiatric: Cooperative. Appropriate mood and affect. Total time spent with patient discussing and formulating plan of care: 35 minutes. This medical document was created using an electronic medical record system with [employer] dictation system. Although this document has been carefully reviewed, there may still be some phonetic and typographical errors. These areas are purely typographical due to imperfections of the software programs, and do not reflect any compromise in the patient's medical care. Condition at Discharge: Fair Final Diagnosis/Problems List Hypertensive crisis with chest pain -acute coronary syndrome ruled out -history of CVA with left-sided hemiparesis -bed-bound status -hypertensive crisis -? Tachy-adrian syndrome Discharge Disposition: Home with Health Services Discharge Instruct/Medications Diet: Cardiac 2g Na,low cholest Activity: No Restrictions, As Tolerated Follow Up/Referral: Follow up PCP in 1-2 weeks Medications: Stop Previous antihypertensive regimen given bradycardia and uncontrolled blood pressure. Cozaar 100 mg p.o. daily. Amlodipine 10 mg p.o. daily Scheduled Amlodipine Besylate (Amlodipine Besylate), 1 TAB PO DAILY Losartan Potassium (Losartan Potassium), 1 TAB PO DAILY Scheduled PRN Baclofen (Baclofen), 10 MG PO Q8HP PRN for FOR MUSCLE SPASM, (Reported) Miscellaneous Medications Hydrocodone-Acetaminophen (Hydrocodone Bitartrate/AC 5-325 mg), 1 TAB PO, (Reported) Discharge Statement: "Patient was advised to return to the ER or call 911 if any headaches, dizziness, shortness of breath, chest pain, abdominal pain, bleeding, fevers, or worsening of medical condition. Patient was counseled about treatment plan, medications, possible side effects, patientverbalized understanding. All questions were answered to the best of my ability. This discharge took greater then 30 minutes in planning, reviewing documentation, counseling the patient, and discussing with other team members." ASSESSMENT ASSESSMENT Assessment Hypertensive crisis with chest pain Date of Service: Sep 07, 2025 Billing Provider: SATISH LINARES NP Common Visit Codes: [id number] DISCH DAY >30min SATISH LINARES NP Sep 07, 2025 13:55
[2025-09-08 01:00] VITALS: BP 176/100; PULSE 70; RESP 17; TEMP 97.3; O2SAT 98
[2025-09-08 05:00] VITALS: BP 161/98; PULSE 91; RESP 19; TEMP 97.7; O2SAT 99
[2025-09-08 08:00] VITALS: PULSE 94; PULSE 95; RESP 17; O2SAT 94
[2025-09-08 08:13] VITALS: BP 179/100; TEMP 36.5
[2025-09-08 09:00] VITALS: BP 115/83; PULSE 94; RESP 17; TEMP 97.6; O2SAT 94
[2025-09-08] MEDS: LOSARTAN POTASSIUM 50 MG TAB PO SCH (10:00)
--- NOTE | 2025-09-08 12:24 | DVHPN2 ---
Subjective Patient reporting spasming to left lower extremity Reviewed: Care Plan, H&P, Labs, Medications, Previous Orders Changes from previous H/P or p: No Changes General: Per HPI Eyes: No Pain, No Vision change, No Conjunctivae inflammation, No Eyelid inflammation, No Other, No Redness ENT: No Ear pain, No Ear discharge, No Nose pain, No Nose discharge, No Nose congestion, No Mouth pain, No Mouth swelling, No Throat pain, No Throat swelling, No Other Cardiovascular: Chest Pain; No Palpitations, No Orthopnea, No Paroxysmal Noc. Dyspnea, No Edema, No Lt Headedness, No Other Respiratory: No Cough, No Dry, No Shortness of breath, No SOB with excertion, No Wheezing, No Hemoptysis, No Pleuritic Pain, No Sputum, No Other Gastrointestinal: No Nausea, No Vomiting, No Abdominal Pain, No Diarrhea, No Constipation, No Melena, No Hematochezia, No Other Genitourinary: No Dysuria, No Frequency, No Incontinence, No Hematuria, No Retention, No Other Musculoskeletal: other (Bed-bound); No neck pain, No shoulder pain, No arm pain, No back pain, No hand pain, No leg pain, No foot pain Skin: No Rash, No Lesions, No Jaundice, No Bruising, No Other Objective Vitals Vital Signs Date Time Temp Pulse Resp B/P (MAP) Pulse Ox O2 Delivery O2 Flow Rate FiO2 09/08/25 09:00 97.6 94 17 115/83 (94) 94 97.6 09/08/25 08:00 Room Air* 0 21 Intake/Output Intake and Output 09/08/25 07:00 Intake Total 814 ml Balance 814 ml Intake Oral 814 ml # Voids 5 # Bowel Movements 3 General Appearance: Alert, Oriented X3, Cooperative, mild distress HEENT: Atraumatic, PERRLA Lungs: Clear to auscultation, Normal air movement Cardiovascular: Normal S1, Normal S2 Abdomen: Normal bowel sounds, Soft, No tenderness, No hepatospenomegaly Genitourinary: No Apparent Abnormalities Musculoskeletal: Other (Left-sided hemiparesis) Skin: Dry, Intact Psych/Mental Status: Mental status NL, Mood NL Medications Current Medications Medications Dose Ordered Sig/Julienne Route Start Time Stop Time Status Last Admin Dose Admin Atorvastatin Calcium 10 mg HS PO 09/04/25 22:00 09/07/25 21:51 10 MG Aspirin 81 mg DAILY PO 09/04/25 10:00 09/07/25 09:31 81 MG Hydralazine HCl 10 mg Q6HP PRN IV 09/04/25 06:00 09/08/25 00:33 10 MG Sodium Chloride 10 ml Q8HR IV 09/04/25 06:00 09/08/25 05:47 10 ML Acetaminophen/ Hydrocodone Bitart 1 tab Q4HP PRN PO 09/04/25 06:00 09/08/25 05:47 1 TAB Ondansetron HCl 4 mg Q4HP PRN IV 09/04/25 06:00 Docusate Sodium 100 mg BIDPRN PRN PO 09/04/25 06:00 09/07/25 09:30 100 MG Acetaminophen 650 mg Q6HP PRN PO 09/04/25 06:00 Nitroglycerin 0.4 mg Q5MINP PRN SL 09/04/25 06:00 Baclofen 10 mg Q8HP PRN PO 09/05/25 04:15 09/07/25 09:31 10 MG Enoxaparin Sodium 40 mg DAILY SC 09/06/25 10:00 09/07/25 09:30 40 MG Amlodipine Besylate 10 mg DAILY PO 09/07/25 10:00 09/07/25 09:34 10 MG Losartan Potassium 100 mg DAILY PO 09/08/25 10:00 Laboratory Results Laboratory Tests 09/05/25 06:31 Microbiology Microbiology Date/Time Source Procedure Growth Status 09/05/25 00:06 Nose MRSA Screen - Final Complete Labs and/or images reviewed: Labs reviewed by me, Image(s) reviewed by me Assessment/Plan Assessment/Plan Impression: -acute coronary syndrome -history of CVA with left-sided hemiparesis -bed-bound status -hypertensive crisis -? Tachy-adrian syndrome Plan: Events: No further bradycardic issues. Patient hypertensive. -continue losartan, add amlodipine 10 mg -start baclofen for leg spasms -cardiology consultation : Recommendations appreciated -PT evaluation -antihypertensives, hold beta blockers -echocardiogram : Reviewed -PUD/DVT prophylaxis -patient discharged to home health services for persistent has been rehabilitation. Patient follows blood pressure improved with amlodipine and Cozaar. Total time spent with patient discussing and formulating plan of care: 35 minutes. This medical document was created using an electronic medical record system with [employer] computerized dictation system. Although this document has been carefully reviewed, there may still be some phonetic and typographical errors. These areas are purely typographical due to imperfections of the software programs, and do not reflect any compromise in the patient's medical care. Plan discussed with: Patient, Other (RN) My Orders Orders - SATISH LINARES NP Procedure Category Date Status Time Losartan Tablet PHA 09/08/25 In Process (Cozaar Tablet) 10:00 Discharge DISCHARGE 09/07/25 Transmitted 13:45 * Drafting Supervisor CONS 09/07/25 Transmitted Consult Date of Service: Sep 08, 2025 Billing Provider: SATISH LINARES NP Common Visit Codes: [id number] INP/OBS CARE(HIGH) SATISH LINARES NP Sep 08, 2025 12:24
== END 2025-09-08 13:03 | disposition home or self-care (01) | DRG 199 ==
LOC: EDBD 03:33 → EDSEX 03:33 → ER 03:33 → OVERFLOW 05:49 → TELE-WESTW 21:39
PROVIDERS: ADMIT Nurse Practitioner Acute Care; ATTEND Nurse Practitioner Acute Care
DX: I16.1 Hypertensive emergency (principal); R53.2 Functional quadriplegia; I49.5 Sick sinus syndrome; I69.354 Hemiplegia and hemiparesis following cerebral infarction affecting left non-dominant side; I12.9 Hypertensive chronic kidney disease with stage 1 through stage 4 chronic kidney disease, or unspecified chronic kidney disease; N18.9 Chronic kidney disease, unspecified; E78.5 Hyperlipidemia, unspecified; Z74.01 Bed confinement status; Z79.899 Other long term (current) drug therapy; Z88.5 Allergy status to narcotic agent
CPT/HCPCS: 36415; 71045; 73030; 80048; 80053; 80061; 82962; 83036; 83735; 83880; 84443; 84484; 85025; 87081; 93005; 93306; 97163; 99291; G0378

== ENCOUNTER 2025-10-21 20:27 | Inpatient (IN) | payer MEDICAID ==
[~2025-10-21] VITALS: Ht 170.2 cm; Wt 75.2 kg
[~2025-10-21 20:27] MED LIST: AMLO1TAB23 PO; BACL10TA PO; HYDR-4902 PO; LOSA-535 PO
--- NOTE | 2025-10-21 21:02 | ED.PDOC ---
History of Present Illness HPI Comments 54 y/o bed-bound F is BIBA for c/c of flare up of chronic left hip pain. Per EMS personnel report, patient has a history of CVA w/left sided deficits and contractions, seizures, and hypertension and reports flare up of pain after running out of her baclofen prescription, recently. No reported recent falls or injuries. On scene vitals were commented to have been stable and within normal limits, with exception to a systolic pressure and heart rate in the 200's and 120's with PVC's, respectively. Initial blood glucose of 112. No further symptoms endorsed. Chief Complaint: Lower Extremity Time Seen by MD: 20:50 Reviewed Notes: Nurses Notes, Medications, Allergies Allergies: Coded Allergies: Morphine (Verified Allergy, Unknown, 03/31/24) Home Meds Active Scripts Amlodipine Besylate (Amlodipine Besylate) 10 Mg Tab, 1 TAB PO DAILY for 30 Days, #30 TAB 5 Refills Prov:SATISH LINARES GEOSCIENCE SPECIALIST 09/07/25 Losartan Potassium (Losartan Potassium) 100 Mg Tab, 1 TAB PO DAILY for 30 Days, #30 TAB 5 Refills Prov:SATISH LINARES GEOSCIENCE SPECIALIST 09/07/25 Reported Medications Hydrocodone-Acetaminophen (Hydrocodone Bitartrate/AC 5-325 mg) 1 Tab Tab, 1 TAB PO, TAB 09/05/25 Baclofen (Baclofen) 10 Mg Tab, 10 MG PO Q8HP PRN for FOR MUSCLE SPASM for 30 Days, MG 09/05/25 Information Source: Patient Mode of Arrival: Ambulatory Severity: Moderate Timing: Hours Duration: Since onset Prehospital treatment: None Past Medical History PAST MEDICAL HISTORY: CKF, CVA, High Lipids, HTN Surgical History: Denies all surgeries LEAD PHP DEVELOPER History: Denies all LEAD PHP DEVELOPER Hx Family History Family History: Reviewed,noncontributory to illness Social History Smoker: Non-Smoker Alcohol: Denies ETOH Use Drugs: Denies Drug Use Lives In: Home All Other Systems: Reviewed and Negative (As per HPI) Physical Exam General Appearance: No Apparent Distress, Normal HEENT: Normal ENT Inspection, Pharynx Normal, TMs Normal Neck: Full Range of Motion, Non-Tender, Normal, Normal Inspection Respiratory: Chest Non-Tender, Lungs Clear, No Accessory Muscle Use, No Respiratory Distress, Normal Breath Sounds Cardiovascular: No Edema, No JVD, No Murmur, No Gallop, Normal Peripheral Pulses, Regular Rate/Rhythm Breast Exam: Deferred Gastrointestinal: No Organomegaly, Non Tender, No Pulsatile Mass, Normal Bowel Sounds, Soft Genitalia: Deferred Pelvic: Deferred Rectal: Deferred Extremities: No calf tenderness, Normal capillary refill, Normal inspection, Normal range of motion, Non-tender, No pedal edema Musculoskeletal : Apperance: Normal Neurologic: Alert, mixer whipped topping II-XII nml as Tested, Normal Affect, Normal Mood, Other (left hemiparesis unchanged per family ) Cerebellar Function: Normal Reflexes: Normal Skin: Dry, Normal Color, Warm Lymphatic: No Adenopathy Was a procedure done? Was a procedure done?: No Differential Dx Considerations may include: chronic pain flare up, medication noncompliant, hypertensive emergency, among others X-Ray, Labs, Meds, VS Vital Signs Date Time Temp Pulse Resp B/P (MAP) Pulse Ox O2 Delivery O2 Flow Rate FiO2 10/21/25 21:10 159/85 10/21/25 20:34 115 10/21/25 20:30 98.2 118 20 200/102 98 98.2 Lab Test 10/21/25 23:05 10/21/25 21:04 Range/Units Lactic Acid Level Pending 2.1 *H 0.4-2.0 mmol/L White Blood Count 6.7 4.4-10.8 10^3/uL Red Blood Count 4.57 4.0-5.20 10^6/uL Hemoglobin 13.6 12.2-16.2 g/dL Hematocrit 39.9 36.0-46.0 % Mean Corpuscular Volume 87.3 80.0-100.0 fL Mean Corpuscular Hemoglobin 29.7 28.0-32.0 pg Mean Corpuscular Hemoglobin Concent 34.0 32.0-36.0 g/dL Red Cell Distribution Width 13.3 11.8-14.3 % Platelet Count 398 140-450 10^3/uL Mean Platelet Volume 7.4 6.9-10.8 fL Neutrophils (%) (Auto) 79.0 37.0-80.0 % Lymphocytes (%) (Auto) 14.2 10.0-50.0 % Monocytes (%) (Auto) 5.4 0.0-12.0 % Eosinophils (%) (Auto) 1.2 0.0-7.0 % Basophils (%) (Auto) 0.2 0.0-2.0 % Neutrophils # (Auto) 5.3 1.6-8.6 10 ^3/uL Lymphocytes # (Auto) 1.0 0.4-5.4 10 ^3/uL Monocytes # (Auto) 0.4 0-1.3 10 ^3/uL Eosinophils # (Auto) 0.1 0-0.8 10 ^3/uL Basophils # (Auto) 0 0-0.2 10 ^3/uL Nucleated Red Blood Cells 0.1 % Prothrombin Time 10.2 9.3-11.8 sec Prothrombin Time INR 0.96 0.9-1.15 Activated Partial Thromboplast Time 26.2 24.5-34.5 SEC Sodium Level 143 136-145 mmol/L Potassium Level 3.7 3.5-5.1 mmol/L Chloride Level 106 98-107 mmol/L Carbon Dioxide Level 27 20-31 mmol/L Anion Gap 10 5-15 Blood Urea Nitrogen 10 9-23 mg/dL Creatinine 1.16 H 0.550-1.02 mg/dL Glomerular Filtration Rate Calc 56 >90 mL/min BUN/Creatinine Ratio 8.6 L 10.0-20.0 Serum Glucose 151 H 74-106 mg/dL Calcium Level 10.3 8.7-10.4 mg/dL Magnesium Level 1.8 1.6-2.6 mg/dL Total Bilirubin 0.2 0.2-1.0 mg/dL Aspartate Amino Transferase (AST) 12 L 13-40 U/L Alanine Aminotransferase (ALT) 14 7-40 U/L Alkaline Phosphatase 111 46-116 U/L Total Protein 7.8 5.7-8.2 g/dL Albumin 4.5 3.2-4.8 g/dL Current Medications Medications (Trade) Dose Ordered Sig/Julienne Route Start Time Stop Time Status Last Admin Sodium Chloride 1,000 ml @ 1,000 mls/hr Q1H ONCE IVB 10/21/25 20:45 10/21/25 21:44 DC 10/21/25 21:10 Hydralazine HCl (Apresoline Injection) 20 mg ONCE ONCE IV 10/21/25 20:45 10/21/25 20:50 DC 10/21/25 21:10 Baclofen (Liorisal Tablet) 10 mg ONCE ONCE PO 10/21/25 21:00 10/21/25 21:01 DC 10/21/25 21:10 [place] [address] Ph: [phone] DIAGNOSTIC IMAGING Diagnostic Imaging Report : [id number] Signed PATIENT: ROOSEVELT CANCINO ACCT: [id number] UNIT: [id number] : 1970 LOC: ER ROOM / BED: / AGE / SEX: 54 / F ADM STATUS: REG ER SERVICE 42 ORDERING PHYSICIAN: YUE NORTH MD PROCEDURE(s): CXR1 - CHEST XRAY 1 VIEW REASON: SOB ORDER NUMBER(s): [id number], ACCESSION NUMBER(s): [id number] CHEST RADIOGRAPH INDICATION: SOB TECHNIQUE: 1 view COMPARISON: XY CHEST XRAY 1 VIEW on DOS: 09/04/25 FINDINGS: Suboptimal patient positioning significantly limits assessment. Lines and Tubes: None. Lungs/Pleura: No obvious consolidation or pleural abnormality. Cardiomediastinum: Heart size is not well assessed. Other: No acute osseous abnormality. IMPRESSION: 1. Essentially nondiagnostic chest radiograph. No obvious acute abnormality. ATED BY: FIORDALIZA TERAN MD DICTATED DATE/TIME: 10/21/252129 SIGNED BY: FIORDALIZA TERAN MD SIGNED DATE/TIME: 10/21/252129 CC: Time of 1ST Reevaluation: 21:20 Reevaluation 1ST: Unchanged Patient Education/Counseling: Diagnosis, Treatment Family Education/Counseling: No Family Present SEPSIS Sepsis Screen Physician Orders Urinalysis (10/21/25 20:43) Blood Culture (10/21/25 20:43) Straightcath If Unable To Void (10/21/25 20:43) Chest Xray 1 View (10/21/25 20:43) Electrocardigram (10/21/25 20:57) Vital Signs Date Time Temp Pulse Resp B/P (MAP) Pulse Ox O2 Delivery O2 Flow Rate FiO2 10/21/25 21:10 159/85 10/21/25 20:34 115 10/21/25 20:30 98.2 118 20 200/102 98 98.2 Laboratory Tests Test 10/21/25 21:04 10/21/25 23:05 Lactic Acid Level 2.1 mmol/L (0.4-2.0) *H Pending White Blood Count 6.7 10^3/uL (4.4-10.8) Medications Medications Dose Ordered Sig/Julienne Route Start Time Stop Time Status Last Admin Dose Admin Baclofen 10 mg ONCE ONCE PO 10/21/25 21:00 10/21/25 21:01 DC 10/21/25 21:10 Hydralazine HCl 20 mg ONCE ONCE IV 10/21/25 20:45 10/21/25 20:50 DC 10/21/25 21:10 Sodium Chloride 1,000 ml @ 1,000 mls/hr Q1H ONCE IVB 10/21/25 20:45 10/21/25 21:44 DC 10/21/25 21:10 Departure 1 Departure Time of Disposition: 23:11 Impression: Primary Impression: Closed left femoral fracture Additional Impressions: Dehydration UTI (urinary tract infection) Disposition: ADMITTED INPATIENT Admit to: Med Surg Condition: Guarded Discharged With: Self Comments 54-year-old female had a closed left femur fracture and was sent home with a Barnett catheter. Now the patient is unable to get around at home and has a UTI related to the catheter. I suspect dehydration. Patient will need admission for supportive care and further workup. Critical Care Note Critical Care Time?: Yes (35 min-critical care time only) Critical care comment: Total critical care time: Approximately 36 minutes Due to a high probability of clinically significant, life threatening deterioration, the patient required my highest level of preparedness to intervene emergently and I personally spent this critical care time directly and personally managing the patient. This critical care time included obtaining a history; examining the patient; pulse oximetry; ordering and review of studies; arranging urgent treatment with development of a management plan; evaluation of patient's response to treatment; frequent reassessment; and, discussions with other providers. This critical care time was performed to assess and manage the high probability of imminent, life-threatening deterioration that could result in multi-organ failure. It was exclusive of separately billable procedures and treating other patients. Stability Stability form required: No Heart Score Heart Score: Heart Score Response (Comments) Value History N/A 0 EKG N/A 0 Age N/A 0 Risk Factors N/A 0 Troponin N/A 0 Total 0 I personally scribed for YUE NORTH MD ([email or web address]) on 10/21/25 at 21:02. Electronically submitted by Neil Clifton ([email or web address]). I personally scribed for YUE NORTH MD ([email or web address]) on 10/21/25 at 22:53. Electronically submitted by Neil Clifton ([email or web address]). YUE NORTH MD Oct 21, 2025 21:02
[2025-10-21] MEDS: SODIUM CHLORIDE 0.9% 1,000 ML IVB ONE (21:10)
[2025-10-21] MEDS: hydrALAZINE HCL 20 MG/ML VL IV ONE (21:10)
[2025-10-21] MEDS: BACLOFEN 10 MG TAB PO ONE (21:10)
[2025-10-21 21:16] LABS: Hematocrit 39.9 % (36.0-46.0); Hemoglobin 13.6 g/dL (12.2-16.2); Mean Corpuscular Hemoglobin 29.7 pg (28.0-32.0); Mean Corpuscular Volume 87.3 fL (80.0-100.0); Nucleated Red Blood Cells % 0.1 %
[2025-10-21 21:31] LABS: INR 0.96 (0.9-1.15); Partial Thromboplastin Time 26.2 SEC (24.5-34.5); Prothrombin Time 10.2 sec (9.3-11.8)
--- NOTE | 2025-10-21 21:33 | DVH ---
CHEST RADIOGRAPH INDICATION: SOB TECHNIQUE: 1 view COMPARISON: XY CHEST XRAY 1 VIEW on DOS: 09/04/25 FINDINGS: Suboptimal patient positioning significantly limits assessment. Lines and Tubes: None. Lungs/Pleura: No obvious consolidation or pleural abnormality. Cardiomediastinum: Heart size is not well assessed. Other: No acute osseous abnormality. IMPRESSION: 1. Essentially nondiagnostic chest radiograph. No obvious acute abnormality.
[2025-10-21 21:34] LABS: Alanine Aminotransferase 14 U/L (7-40); Albumin 4.5 g/dL (3.2-4.8); Alkaline Phosphatase 111 U/L (46-116); Anion Gap 10 (5-15); BUN/Creatinine Ratio 8.6 (10.0-20.0); Blood Urea Nitrogen 10 mg/dL (9-23); Calcium 10.3 mg/dL (8.7-10.4); Carbon Dioxide 27 mmol/L (20-31); Chloride 106 mmol/L (98-107); Magnesium 1.8 mg/dL (1.6-2.6); Potassium 3.7 mmol/L (3.5-5.1); Sodium 143 mmol/L (136-145); Total Protein 7.8 g/dL (5.7-8.2)
[2025-10-21 21:42] LABS: Bilirubin, Total 0.2 mg/dL (0.2-1.0); Glucose 151 mg/dL (74-106)
[2025-10-21 21:44] LABS: Lactic Acid w/Reflex 2.1 mmol/L (0.4-2.0)
[2025-10-21 21:50] VITALS: RESP 22; O2SAT 96
[2025-10-21] MEDS ORDERED: NITROGLYCERIN 0.4 MG SL TAB SL PRN (23:45)
[2025-10-21] MEDS ORDERED: MORPHINE SULFATE INJ 2 MG/ml SYRG IV PRN (23:45)
--- NOTE | 2025-10-21 23:47 | DVHHPRES ---
History of Present Illness Resident Creating Document: BREANA RIVERA RESIDENT History of Present Illness Hafsa Luna, a 54-year-old female with past medical history of stroke with left-sided weakness, intractable left hip pain, hypertension presented to the ER with the complaints of intractable left hip pain. She reports that her son who graduated few months back helps her with ambulation. She does not use walker or wheelchair. She takes antihypertensive medication. On review of systems she reports having constipation. She denies any chest pain, shortness of breath, fever, recent sick contacts, urinary symptoms or any other complaints at this time. She reports being admitted in the hospital recently due to multiple episodes of seizures, brain MRI was done during that admission which reveals no abnormalities detected. Past medical history: As above Past surgical history: 2 sections Allergies: Morphine Home medications: Amlodipine, lisinopril Marijuana: Occasionally Alcohol: Occasionally, last drink few months back. Full code status Review of Systems Gastrointestinal: Constipation Musculoskeletal: other (Left hip pain) Allergies: Coded Allergies: Morphine (Verified Allergy, Unknown, 03/31/24) Medications Current Medications Medications Dose Ordered Sig/Julienne Route Start Time Stop Time Status Last Admin Dose Admin Nitroglycerin 0.4 mg Q5MINP PRN SL 10/21/25 23:45 Morphine Sulfate 2 mg Q30M PRN IV 10/21/25 23:45 UNV Exam Vital Signs Vital Signs Date Time Temp Pulse Resp B/P (MAP) Pulse Ox O2 Delivery O2 Flow Rate FiO2 10/21/25 23:22 119 18 119/76 (90) 94 10/21/25 20:30 98.2 98.2 Exam Pt is lying on bed General Appearance: Alert, Oriented X3, Cooperative, Mild distress HEENT: Atraumatic, Mucous membranes moist/pink Respiratory: Clear to auscultation, Normal air movement, No added sounds Cardiovascular: Regular rate, Normal S1, Normal S2, No murmurs Abdominal/ : Active bowel sounds, Soft, no distention, no tenderness Extremities: No edema, Normal pulses, No tenderness/swelling, right-sided extremity strength normal, left-sided neurologic exam limited due to intractable pain. Skin: No Significant rash, except past surgical scars Neuro: Normal speech, sensorimotor deficits none Psych/Mental Status: Mental status NL, Mood NL Nurse was there as milk and cream grader during examination Labs/Xrays Labs Test 10/21/25 23:05 10/21/25 21:04 Range/Units Lactic Acid Level 1.9 0.4-2.0 mmol/L White Blood Count 6.7 4.4-10.8 10^3/uL Red Blood Count 4.57 4.0-5.20 10^6/uL Hemoglobin 13.6 12.2-16.2 g/dL Hematocrit 39.9 36.0-46.0 % Mean Corpuscular Volume 87.3 80.0-100.0 fL Mean Corpuscular Hemoglobin 29.7 28.0-32.0 pg Mean Corpuscular Hemoglobin Concent 34.0 32.0-36.0 g/dL Red Cell Distribution Width 13.3 11.8-14.3 % Platelet Count 398 140-450 10^3/uL Mean Platelet Volume 7.4 6.9-10.8 fL Neutrophils (%) (Auto) 79.0 37.0-80.0 % Lymphocytes (%) (Auto) 14.2 10.0-50.0 % Monocytes (%) (Auto) 5.4 0.0-12.0 % Eosinophils (%) (Auto) 1.2 0.0-7.0 % Basophils (%) (Auto) 0.2 0.0-2.0 % Neutrophils # (Auto) 5.3 1.6-8.6 10 ^3/uL Lymphocytes # (Auto) 1.0 0.4-5.4 10 ^3/uL Monocytes # (Auto) 0.4 0-1.3 10 ^3/uL Eosinophils # (Auto) 0.1 0-0.8 10 ^3/uL Basophils # (Auto) 0 0-0.2 10 ^3/uL Nucleated Red Blood Cells 0.1 % Prothrombin Time 10.2 9.3-11.8 sec Prothrombin Time INR 0.96 0.9-1.15 Activated Partial Thromboplast Time 26.2 24.5-34.5 SEC Sodium Level 143 136-145 mmol/L Potassium Level 3.7 3.5-5.1 mmol/L Chloride Level 106 98-107 mmol/L Carbon Dioxide Level 27 20-31 mmol/L Anion Gap 10 5-15 Blood Urea Nitrogen 10 9-23 mg/dL Creatinine 1.16 H 0.550-1.02 mg/dL Glomerular Filtration Rate Calc 56 >90 mL/min BUN/Creatinine Ratio 8.6 L 10.0-20.0 Serum Glucose 151 H 74-106 mg/dL Calcium Level 10.3 8.7-10.4 mg/dL Magnesium Level 1.8 1.6-2.6 mg/dL Total Bilirubin 0.2 0.2-1.0 mg/dL Aspartate Amino Transferase (AST) 12 L 13-40 U/L Alanine Aminotransferase (ALT) 14 7-40 U/L Alkaline Phosphatase 111 46-116 U/L Total Protein 7.8 5.7-8.2 g/dL Albumin 4.5 3.2-4.8 g/dL SEPSIS Sepsis Screen Date sepsis recognized/suspect: Oct 21, 2025 Time Sepsis recognized/suspect: 2149 Recent Procedure: No On Antibiotic Therapy: No Respiratory Rate >20: No Heart Rate >90: Yes Temp<36 C (96.8 F) or >38.3 C: No SBP <90 or MAP <65 mmHG: No New Acute Mental Status Change: No Is the patient on CPAP, BIPAP,: No Physician Orders Urinalysis (10/21/25 20:43) Blood Culture (10/21/25 20:43) Straightcath If Unable To Void (10/21/25 20:43) Chest Xray 1 View (10/21/25 20:43) Electrocardigram (10/21/25 20:57) Admit (10/21/25 23:41) Nitroglycerin Sublingual (Ntrostat Subli (10/21/25 23:45) Morphine Sulfate Injection (10/21/25 23:45) Oxygen By Nasal Cannula (10/21/25 23:41) Stat Ekg For Chest Pain (10/21/25 23:41) Notify Md Of Changes From Base (10/21/25 23:41) Sheet Rock Installer For 24 Hours (10/21/25 23:41) Emergency Dysrhythmia Protocol (10/21/25 23:41) Rhythm Strips Once Every Shift (10/21/25 23:41) Vital Signs Date Time Temp Pulse Resp B/P (MAP) Pulse Ox O2 Delivery O2 Flow Rate FiO2 10/21/25 23:22 119 18 119/76 (90) 94 10/21/25 21:10 159/85 10/21/25 20:34 115 10/21/25 20:30 98.2 118 20 200/102 98 98.2 Laboratory Tests Test 10/21/25 21:04 10/21/25 23:05 Lactic Acid Level 2.1 mmol/L (0.4-2.0) *H 1.9 mmol/L (0.4-2.0) White Blood Count 6.7 10^3/uL (4.4-10.8) Medications Medications Dose Ordered Sig/Julienne Route Start Time Stop Time Status Last Admin Dose Admin Baclofen 10 mg ONCE ONCE PO 10/21/25 21:00 10/21/25 21:01 DC 10/21/25 21:10 10 MG Hydralazine HCl 20 mg ONCE ONCE IV 10/21/25 20:45 10/21/25 20:50 DC 10/21/25 21:10 20 MG Sodium Chloride 1,000 ml @ 1,000 mls/hr Q1H ONCE IVB 10/21/25 20:45 10/21/25 21:44 DC 10/21/25 21:10 1,000 MLS/HR Assessment/Plan Assessment/Plan History of Stroke with left-sided weakness Hypertensive heart disease Intractable left hip pain Acute complicated UTI History of recent seizures with hospital admission Constipation -lisinopril, amlodipine -ceftriaxone IV daily -[place] -left hip x-ray: No acute fractures -head CT: No acute findings -chest x-ray: No acute findings -urinalysis: Reveals urinary infection -lactulose -vitamin-D, TSH, vitamin B12 ordered GI prophylaxis: Pantoprazole DVT prophylaxis: SCDs Diet: Cardiac Goals of care discussed with the patient for more than 27 minutes: Full code sta tus Case discussed with , patient and RN Plan discussed with: Patient, Other (RN) My Orders Orders - BREANA RIVERA RESIDENT Procedure Category Date Status Time Admit ADMIT 10/21/25 Transmitted 23:41 Nitroglycerin PHA 10/21/25 In Process Sublingual (Ntrostat 23:45 Morphine Sulfate PHA 10/21/25 Logged Injection 23:45 Oxygen By Nasal RT 10/21/25 Transmitted Cannula 23:41 Stat Ekg For Chest CRISTIAN 10/21/25 In Process Pain 23:41 Notify Of Changes CRISTIAN 10/21/25 In Process From Base 23:41 Sheet Rock Installer For CRISTIAN 10/21/25 In Process 24 Hours 23:41 Emergency Dysrhythmia [facility] 10/21/25 In Process Protocol 23:41 Rhythm Strips Once [facility] 10/21/25 In Process Every Shift 23:41 Visit Coding STANDARD RES Billing Provider: BECCA LATHAM MD Date of Service if different f: Oct 21, 2025 Common Visit Codes: [id number] INP/OBS CARE (HIGH) Secondary Visit Codes: [id number] CARE PLAN 30 MINUTES BREANA RIVERA RESIDENT Oct 21, 2025 23:47
[2025-10-22] MEDS: HYDROcodone-ACET 5/325MG TAB PO ONE (01:25)
[2025-10-22] MEDS: BACLOFEN 10 MG TAB PO PRN (01:26)
--- NOTE | 2025-10-22 01:41 | DVH ---
CLINICAL INDICATION: R/o fracture TECHNIQUE: 3 views XY L HIP COMPLETE XRAY COMPARISON: None FINDINGS: Suboptimal patient positioning, nonstandard images, soft tissue attenuation and beam underpenetration, and osteopenia limits assessment. No obvious fracture or dislocation. Moderate appearing osteoarthrosis. Unremarkable soft tissues. IMPRESSION: 1. Limited exam without obvious acute abnormality of the left hip.
[2025-10-22 02:03] LABS: Urine Protein, UAD Negative (Negative)
[2025-10-22] MEDS: LACTULOSE 20Gm/30ML SOLN PO ONE (02:29)
[2025-10-22 02:32] LABS: Cannabinoid Screen, Urine Neg (NEGATIVE)
[2025-10-22 02:33] LABS: Amphetamine Screen, Urine Neg (NEGATIVE); Barbiturate Scree,Urine Neg (NEGATIVE); Benzodiazephine Screen, Urine Neg (NEGATIVE); Cocaine Screen, Urine Neg (NEGATIVE); Opiate Scree,Urine Neg (NEGATIVE); Phencyclidine Screen, Urine Neg (NEGATIVE)
--- NOTE | 2025-10-22 06:24 | ECG ---
[facility] Test Date: 2025-10-21 Test Time: 20:34:53 Pat Name: ROOSEVELT CANCINO Department: ED Room: [address] [place] [address] Gender: F Rat Exterminator: NATACHA : 1970 Requested By: EMERGENCY EMERGENCY Order Number: [id number] Reading MD: Duane Lewis Measurements Intervals [place] Rate: 115 P: 53 IL: 156 QRS: 32 QRSD: 98 T: 250 QT: 326 QTc: 451 Interpretive Statements Sinus tachycardia LAE, consider biatrial enlargement Abnormal T, consider ischemia, diffuse leads Baseline wander in lead(s) V2 Electronically Signed On 10-22-2025 20:11:56 PST by Duane Lewis Please click the below link to view image of tracing.
[2025-10-22] MEDS: HYDROcodone-ACET 5/325MG TAB PO PRN (07:10)
[2025-10-22] MEDS: PANTOPRAZOLE 40 MG TAB PO SCH (07:40)
[2025-10-22] MEDS ORDERED: MORPHINE SULFATE INJ 2 MG/ml SYRG IV PRN ×2 (08:15→11:15)
--- NOTE | 2025-10-22 08:28 | DVH ---
EXAM: CT HEAD WITHOUT CONTRAST INDICATION: R/o hemorrhagic stroke. TECHNIQUE: CT of the head without intravenous contrast. Coronal and sagittal reformatted images are submitted. Radiation Dose : 1. Head: CT Dose: CTDI volume is 55.84 mGy. Dose-length product is 987.0 mGy*cm The dose indicators for CT are the volume Computed Tomography (CT) Dose Index (CTDIvol) and the Dose Length Product (DLP), and are measured in units of mGy and mGy-cm, respectively. These indicators are not patient dose, but values generated from the CT scanner acquisition factors. The report includes radiation exposure data for exposures received during this examination. All CT scans at this medical facility are performed using dose modulation techniques as appropriate to a performed exam including the following: Automated exposure control was utilized; adjustment of the MA and/or KV according to patient size; and use of iterative reconstruction technique. COMPARISON: No prior images are available for comparison at this time. FINDINGS: There is no evidence of acute intracranial hemorrhage, extra-axial collection, mass effect, midline shift, herniation or hydrocephalus. There is an old right MCA and MICROSOFT APPLICATION DEVELOPER infarct. Global cortical volume loss. There are periventricular and subcortical hypodensities, nonspecific, but likely reflecting sequelae of chronic microvascular ischemic changes. The ventricles, sulci and cisterns are age appropriate. The hernandez-white differentiation is intact. The visualized paranasal sinuses and mastoid air cells are clear. No depressed calvarial fracture. The surrounding soft tissues are unremarkable. IMPRESSION: 1. No evidence of acute intracranial hemorrhage, mass effect or hydrocephalus. 2. Old right MCA and MICROSOFT APPLICATION DEVELOPER infarcts.
[2025-10-22] MEDS: LABETALOL HCL 20 MG/4 ML VL IV ONE (08:59)
[2025-10-22] MEDS: CARVEDILOL 3.125 MG TAB PO SCH ×2 (09:24→21:38)
[2025-10-22] MEDS ORDERED: LORazepam 2MG/ML-1ML VIAL IV PRN (09:45)
[2025-10-22] MEDS: LACTULOSE 20Gm/30ML SOLN PO SCH (10:00)
[2025-10-22] MEDS: HYDROmorphone HCL 2 MG/ML VL/or syr IV ONE (10:09)
[2025-10-22] MEDS: KETOROLAC TROMETH 30 MG/ML 1ML VIAL IV PRN (10:35)
[2025-10-22] MEDS: LOSARTAN POTASSIUM 50 MG TAB PO SCH (10:36)
[2025-10-22] MEDS: ATORVASTATIN 20 MG TAB PO ONE (10:41)
[2025-10-22] MEDS: ASPirin-EC 81 mg tab PO SCH (10:41)
[2025-10-22] MEDS: ENOXAPARIN SOD 40 MG/0.4 ML SYRINGE SC SCH (10:42)
[2025-10-22] MEDS ORDERED: hydrALAZINE HCL 20 MG/ML VL IV PRN (11:15)
[2025-10-22] MEDS: methylPREDNISolone SOD SUCC 40 MG/ML VL IV ONE (11:51)
[2025-10-22] MEDS: SPIRONOLACTONE 25 MG TAB PO ONE (11:51)
[2025-10-22] MEDS: ACETAMINOPHEN 325 MG TAB PO SCH (12:00)
[2025-10-22 12:20] VITALS: PULSE 82; RESP 14; O2SAT 96
[2025-10-22] MEDS: BACLOFEN 10 MG TAB PO SCH (14:26)
--- NOTE | 2025-10-22 14:51 | DVHPNRES ---
Progress Note Date Seen: Oct 22, 2025 Resident Creating Document: EVANGELINA DAY RESDIENT Medical Necessity Reason Pt with a Central, PICC or Fol: No Subjective Review of Systems Hafsa Luna, a 54-year-old female with past medical history of stroke with left-sided weakness, intractable left hip pain, hypertension presented to the ER with the complaints of intractable left hip pain. She reports that her son who graduated few months back helps her with ambulation. She does not use walker or wheelchair. She takes antihypertensive medication. On review of systems she reports having constipation. She denies any chest pain, shortness of breath, fever, recent sick contacts, urinary symptoms or any other complaints at this time. She reports being admitted in the hospital recently due to multiple episodes of seizures, brain MRI was done during that admission which reveals no abnormalities detected. Past medical history: As above Past surgical history: 2 sections On 10/22, the patient is seen and examined at bedside. Patient is still complaining severe left lower limb pain and dysuria. Objective vital signs Vital Sign Date Time Temp Pulse Resp B/P (MAP) Pulse Ox O2 Delivery O2 Flow Rate FiO2 10/22/25 13:36 190/100 10/22/25 13:03 80 96 10/22/25 12:20 82 Room Air* 0 21 10/22/25 12:20 98.7 98.7 Total Intake and Output 10/21/25 10/21/25 10/22/25 14:59 22:59 06:59 Intake Total 1000 ml Balance 1000 ml medications Current Medications Medications Dose Ordered Sig/Julienne Route Start Time Stop Time Status Last Admin Dose Admin Lactulose 15 ml DAILY PO 10/22/25 10:00 Amlodipine Besylate 10 mg DAILY PO 10/22/25 10:00 10/22/25 11:23 10 MG Losartan Potassium 100 mg DAILY PO 10/22/25 10:00 10/22/25 10:36 100 MG Ceftriaxone Sodium 50 ml @ 100 mls/hr DAILY@2100 IV 10/22/25 21:00 Acetaminophen 650 mg Q6HR PO 10/22/25 12:00 Ketorolac Tromethamine 15 mg Q6HPRN PRN IV 10/22/25 08:15 10/27/25 08:14 10/22/25 10:35 15 MG Lorazepam 1 mg Q5MINP PRN IV 10/22/25 09:45 Atorvastatin Calcium 80 mg HS PO 10/23/25 22:00 Enoxaparin Sodium 40 mg DAILY SC 10/22/25 10:00 10/22/25 10:42 40 MG Aspirin 81 mg DAILY PO 10/22/25 10:00 10/22/25 10:41 81 MG Carvedilol 6.25 mg Q12HR PO 10/22/25 22:00 Baclofen 10 mg Q8HR PO 10/22/25 14:00 10/22/25 14:26 10 MG Methylprednisolone Sodium Succinate 40 mg DAILY IV 10/23/25 10:00 Pantoprazole Sodium 40 mg DAILY IV 10/23/25 10:00 Diazepam 2 mg Q6HP PRN PO 10/22/25 11:00 Morphine Sulfate 2 mg Q4HPRN PRN IV 10/22/25 11:15 Hold Spironolactone 25 mg DAILY PO 10/23/25 10:00 Hydralazine HCl 10 mg Q6HP PRN IV 10/22/25 11:15 Nicardipine/ Sodium Chloride 200 ml @ 50 mls/hr Q4H IV 10/22/25 12:45 10/22/25 13:28 50 MLS/HR Examination General Appearance: Alert, Oriented X3, Cooperative, No acute distress HEENT: Atraumatic, PERRLA, EOMI, Mucous membrane moist/pink Respiratory: Clear to auscultation, Normal air movement Cardiovascular: Regular rate, Normal S1, Normal S2, No murmurs, no chest wall tenderness Abdominal: Normal bowel sounds, Soft, No tenderness, No hepatospenomegaly, No masses Extremities: Severe left hip pain, the patient can not extend or move left leg. Skin: No rashes, No breakdown, No significant lesion Neuro: Normal gait, Normal speech, Strength at 5/5 X4 ext, Normal tone, Sensation intact, Cranial nerves 3-12 NL, Reflexes 2+ Psych/Mental Status: Mental status NL, Mood NL laboratory and microbiology Laboratory Tests 10/21/25 21:04 Test 10/21/25 21:04 Range/Units Serum Glucose 151 H 74-106 mg/dL Labs and/or images reviewed: Labs reviewed by me, Image(s) reviewed by me Problem List/Assessment/Plan Problem List/Assessment/Plan History of Stroke with left-sided weakness Hypertensive emergency Hypertensive heart disease Intractable left hip pain Acute complicated UTI Sirs, with end-organ damage History of recent seizures with hospital admission Constipation Medication nonadherence Dyslipidemia * Urinalysis shows, UTI picture * Lactic acidosis raised * Head CT scan performed, showed old changes Plan/recommendation: * Empiric antibiotic, Rocephin * Nicardipine drip * Carvedilol, amlodipine, losartan, atorvastatin and aspirin * Hydralazine p.r.n. * Urine culture * Physical therapy evaluation * Ativan p.r.n. for possible seizure * Pain management DIET: Cardiac diet DVT PROPHYLAXIS: Lovenox GI PROPHYLAXIS:: Protonix CODE STATUS: Goal of care discussed for more than 18 minutes, full code DISPOSITION: ICU status Critical care time, 87 minutes Patient's status and plan discussed with the patient. Case discussed with Dr. Joseph. Plan discussed with: Patient, Other (RN) My Orders My Orders Orders - EVANGELINA DAY RESDITRAE Procedure Category Date Status Time Acetaminophen Tablet PHA 10/22/25 In Process (Tylenol Tablet) 12:00 Ketorolac Injection PHA 10/22/25 In Process (Toradol Injection) 08:15 Pt Request For Service PT 10/22/25 Logged 09:42 Seizure Precautions ED NURSING 10/22/25 Transmitted Lorazepam 2mg/Ml Inj PHA 10/22/25 In Process (Ativan Inj) 09:45 Enoxaparin Sodium PHA 10/22/25 In Process (Lovenox) 10:00 Aspirin Enteric PHA 10/22/25 In Process Coated Tablet 10:00 Carvedilol Tablet PHA 10/22/25 In Process (Coreg Tablet) 22:00 Atorvastatin (Lipitor) PHA 10/23/25 In Process 22:00 Baclofen Tablet PHA 10/22/25 In Process (Liorisal Tablet) 14:00 Methylprednisolone PHA 10/23/25 In Process Sod Succ (Solu Medrol 10:00 Pantoprazole PHA 10/23/25 In Process (Protonix) 10:00 Diazepam Tablet PHA 10/22/25 In Process (Valium Tablet) 11:00 Morphine Sulfate PHA 10/22/25 In Process Injection 11:15 Spironolactone PHA 10/23/25 In Process (Aldactone) 10:00 Hydralazine Injection PHA 10/22/25 In Process (Apresoline Inject 11:15 Nicardipine PHA 12/11/25 In Process 20mg/200ml (Cardene 12:45 Transfer Orders XFER 10/22/25 Transmitted 12:43 Visit Coding STANDARD RES Billing Provider: RAIMUNDO GOYAL MD Date of Service if different f: Oct 22, 2025 Common Visit Codes: [id number] INP/OBS CARE(HIGH) EVANGELINA DAY RESDIENT Oct 22, 2025 14:51
[2025-10-22] MEDS: diazePAM 2 MG TAB PO PRN (19:46)
[2025-10-23] VITALS (53 sets, daily range): BP systolic 113–174; BP diastolic 64–100; PULSE 60–102; RESP 0–19; TEMP 97.5–98.2; O2SAT 87–98
[2025-10-23] MEDS: CARVEDILOL 3.125 MG TAB PO SCH ×2 (09:23→21:49)
[2025-10-23] MEDS: methylPREDNISolone SOD SUCC 40 MG/ML VL IV SCH (10:24)
[2025-10-23] MEDS: PANTOPRAZOLE 40 MG/10 ML VIAL INJ IV SCH (10:24)
[2025-10-23] MEDS: SPIRONOLACTONE 25 MG TAB PO SCH (10:24)
[2025-10-23] MEDS: CARVEDILOL 12.5 MG TAB PO ONE (13:54)
--- NOTE | 2025-10-23 16:41 | DVHPNRES ---
Progress Note Date Seen: Oct 23, 2025 Resident Creating Document: EVANGELINA DAY RESDIENT Medical Necessity Reason Pt with a Central, PICC or Fol: No Subjective Review of Systems Hafsa Luna, a 54-year-old female with past medical history of stroke with left-sided weakness, intractable left hip pain, hypertension presented to the ER with the complaints of intractable left hip pain. She reports that her son who graduated few months back helps her with ambulation. She does not use walker or wheelchair. She takes antihypertensive medication. On review of systems she reports having constipation. She denies any chest pain, shortness of breath, fever, recent sick contacts, urinary symptoms or any other complaints at this time. She reports being admitted in the hospital recently due to multiple episodes of seizures, brain MRI was done during that admission which reveals no abnormalities detected. Past medical history: As above Past surgical history: 2 sections On 10/22, the patient is seen and examined at bedside. Patient is still complaining severe left lower limb pain and dysuria. On 10/23, the patient seen and examined at the bedside. Patient is feeling better, but still blood pressure is high and the patient is on nicardipine drip. Objective vital signs Vital Sign Date Time Temp Pulse Resp B/P (MAP) Pulse Ox O2 Delivery O2 Flow Rate FiO2 10/23/25 16:00 97.9 65 13 116/65 (82) 97 97.9 10/23/25 16:00 Room Air* 0 21 Total Intake and Output 10/22/25 10/22/25 10/23/25 15:00 23:00 07:00 Intake Total 650 ml Balance 650 ml medications Current Medications Medications Dose Ordered Sig/Julienne Route Start Time Stop Time Status Last Admin Dose Admin Lactulose 15 ml DAILY PO 10/22/25 10:00 10/23/25 10:28 15 ML Losartan Potassium 100 mg DAILY PO 10/22/25 10:00 10/22/25 10:36 100 MG Ceftriaxone Sodium 50 ml @ 100 mls/hr DAILY@2100 IV 10/22/25 21:00 10/22/25 21:00 100 MLS/HR Acetaminophen 650 mg Q6HR PO 10/22/25 12:00 10/23/25 13:55 650 MG Ketorolac Tromethamine 15 mg Q6HPRN PRN IV 10/22/25 08:15 10/27/25 08:14 10/23/25 03:41 15 MG Lorazepam 1 mg Q5MINP PRN IV 10/22/25 09:45 Atorvastatin Calcium 80 mg HS PO 10/23/25 22:00 Enoxaparin Sodium 40 mg DAILY SC 10/22/25 10:00 10/23/25 10:25 40 MG Aspirin 81 mg DAILY PO 10/22/25 10:00 10/23/25 10:30 81 MG Baclofen 10 mg Q8HR PO 10/22/25 14:00 10/23/25 13:55 10 MG Methylprednisolone Sodium Succinate 40 mg DAILY IV 10/23/25 10:00 10/23/25 10:24 40 MG Pantoprazole Sodium 40 mg DAILY IV 10/23/25 10:00 10/23/25 10:24 40 MG Diazepam 2 mg Q6HP PRN PO 10/22/25 11:00 10/23/25 10:30 2 MG Morphine Sulfate 2 mg Q4HPRN PRN IV 10/22/25 11:15 Hold Spironolactone 25 mg DAILY PO 10/23/25 10:00 10/23/25 10:24 25 MG Hydralazine HCl 10 mg Q6HP PRN IV 10/22/25 11:15 Nicardipine/ Sodium Chloride 200 ml @ 50 mls/hr Q4H IV 10/22/25 12:45 10/23/25 14:25 75 MLS/HR Nifedipine 90 mg DAILY PO 10/23/25 08:30 10/23/25 09:22 90 MG Carvedilol 25 mg Q12HR PO 10/23/25 22:00 Examination General Appearance: Alert, Oriented X3, Cooperative, No acute distress HEENT: Atraumatic, PERRLA, EOMI, Mucous membrane moist/pink Respiratory: Clear to auscultation, Normal air movement Cardiovascular: Regular rate, Normal S1, Normal S2, No murmurs, no chest wall tenderness Abdominal: Normal bowel sounds, Soft, No tenderness, No hepatospenomegaly, No masses Extremities: Severe left hip pain, the patient can not extend or move left leg. Skin: No rashes, No breakdown, No significant lesion Neuro: Normal gait, Normal speech, Strength at 5/5 X4 ext, Normal tone, Sensation intact, Cranial nerves 3-12 NL, Reflexes 2+ Psych/Mental Status: Mental status NL, Mood NL laboratory and microbiology Laboratory Tests 10/21/25 21:04 Test 10/21/25 21:04 Range/Units Serum Glucose 151 H 74-106 mg/dL Microbiology Date/Time Source Procedure Growth Status 10/21/25 21:04 Blood Blood Culture - Preliminary NO GROWTH AFTER 24 HOURS OF INCUBATION. Resulted Labs and/or images reviewed: Labs reviewed by me, Image(s) reviewed by me Problem List/Assessment/Plan Problem List/Assessment/Plan History of Stroke with left-sided weakness Hypertensive emergency Hypertensive heart disease Intractable left hip pain Acute complicated UTI Sirs, with end-organ damage History of recent seizures with hospital admission Constipation Medication nonadherence Dyslipidemia * Urinalysis shows, UTI picture * Lactic acidosis raised * Head CT scan performed, showed old changes Plan/recommendation: * Empiric antibiotic, Rocephin * Nicardipine drip * Carvedilol 25 mg b.i.d., nifedipine 90 mg daily, losartan 100 mg daily, spironolactone 25 mg daily, atorvastatin and aspirin * Hydralazine p.r.n. * Urine culture * Physical therapy evaluation * Ativan p.r.n. for possible seizure * Pain management DIET: Cardiac diet DVT PROPHYLAXIS: Lovenox GI PROPHYLAXIS:: Protonix CODE STATUS: Goal of care discussed for more than 18 minutes, full code DISPOSITION: ICU status Critical care time, 87 minutes Patient's status and plan discussed with the patient. Case discussed with Dr. Lin. Plan discussed with: Patient, Other (RN) My Orders My Orders Orders - EVANGELINA DAY RESDITRAE Procedure Category Date Status Time Nifedipine Er PHA 10/23/25 In Process (Procardia Xl 08:30 Communication Order ORDERS 10/23/25 Transmitted 10:01 Carvedilol Tablet PHA 10/23/25 In Process (Coreg Tablet) 22:00 Visit Coding STANDARD RES Billing Provider: ANA LIN DO Date of Service if different f: Oct 23, 2025 Common Visit Codes: [id number] INP/OBS CARE(HIGH) EVANGELINA DAY RESDIENT Oct 23, 2025 16:41 ANA LIN DO Oct 25, 2025 21:03
[2025-10-23 17:38] LABS: Hematocrit 40.5 % (36.0-46.0); Hemoglobin 13.6 g/dL (12.2-16.2); Mean Corpuscular Hemoglobin 29.6 pg (28.0-32.0); Mean Corpuscular Volume 88.2 fL (80.0-100.0); Nucleated Red Blood Cells % 0.0 %
[2025-10-23 17:59] LABS: Alanine Aminotransferase 17 U/L (7-40); Albumin 4.4 g/dL (3.2-4.8); Alkaline Phosphatase 101 U/L (46-116); Anion Gap 11 (5-15); BUN/Creatinine Ratio 9.8 (10.0-20.0); Blood Urea Nitrogen 11 mg/dL (9-23); Carbon Dioxide 26 mmol/L (20-31); Chloride 103 mmol/L (98-107); Potassium 4.2 mmol/L (3.5-5.1); Sodium 140 mmol/L (136-145); Total Protein 7.8 g/dL (5.7-8.2)
[2025-10-23 18:00] LABS: Bilirubin, Total 0.5 mg/dL (0.2-1.0)
[2025-10-23 18:05] LABS: Calcium 10.5 mg/dL (8.7-10.4); Glucose 130 mg/dL (74-106)
[2025-10-23] MEDS: ATORVASTATIN 20 MG TAB PO SCH (21:50)
[2025-10-24] VITALS (63 sets, daily range): BP systolic 101–167; BP diastolic 62–96; PULSE 59–85; RESP 8–69; TEMP 97.1–98.8; O2SAT 90–98
[2025-10-24] MEDS: MEROPENEM 1GM IVPB 50 ML IV ONE (05:31)
--- NOTE | 2025-10-24 10:20 | DVHPNRES ---
Progress Note Date Seen: Oct 24, 2025 Resident Creating Document: EVANGELINA DAY RESDIENT Medical Necessity Reason Pt with a Central, PICC or Fol: No Subjective Review of Systems Hafsa Luna, a 54-year-old female with past medical history of stroke with left-sided weakness, intractable left hip pain, hypertension presented to the ER with the complaints of intractable left hip pain. She reports that her son who graduated few months back helps her with ambulation. She does not use walker or wheelchair. She takes antihypertensive medication. On review of systems she reports having constipation. She denies any chest pain, shortness of breath, fever, recent sick contacts, urinary symptoms or any other complaints at this time. She reports being admitted in the hospital recently due to multiple episodes of seizures, brain MRI was done during that admission which reveals no abnormalities detected. Past medical history: As above Past surgical history: 2 sections On 10/22, the patient is seen and examined at bedside. Patient is still complaining severe left lower limb pain and dysuria. On 10/23, the patient seen and examined at the bedside. Patient is feeling better, but still blood pressure is high and the patient is on nicardipine drip. Twelve, the patient is seen and examined at the bedside patient is feeling better, blood pressure has improved, discontinue nicardipine, decreased carvedilol dose to 12.5 b.i.d.. Objective vital signs Vital Sign Date Time Temp Pulse Resp B/P (MAP) Pulse Ox O2 Delivery O2 Flow Rate FiO2 10/24/25 10:05 125/80 10/24/25 07:45 59 11 94 10/24/25 07:30 Room Air* 0 21 10/24/25 04:01 98.6 98.6 Total Intake and Output 10/23/25 10/23/25 10/24/25 15:00 23:00 07:00 Intake Total 500 ml 465 ml 400 ml Balance 500 ml 465 ml 400 ml medications Current Medications Medications Dose Ordered Sig/Julienne Route Start Time Stop Time Status Last Admin Dose Admin Lactulose 15 ml DAILY PO 10/22/25 10:00 10/24/25 10:04 15 ML Losartan Potassium 100 mg DAILY PO 10/22/25 10:00 10/24/25 10:05 100 MG Ceftriaxone Sodium 50 ml @ 100 mls/hr DAILY@2100 IV 10/22/25 21:00 10/23/25 21:48 100 MLS/HR Acetaminophen 650 mg Q6HR PO 10/22/25 12:00 10/24/25 05:30 650 MG Ketorolac Tromethamine 15 mg Q6HPRN PRN IV 10/22/25 08:15 10/27/25 08:14 10/23/25 21:48 15 MG Lorazepam 1 mg Q5MINP PRN IV 10/22/25 09:45 Atorvastatin Calcium 80 mg HS PO 10/23/25 22:00 10/23/25 21:50 80 MG Enoxaparin Sodium 40 mg DAILY SC 10/22/25 10:00 10/24/25 10:04 40 MG Aspirin 81 mg DAILY PO 10/22/25 10:00 10/24/25 10:05 81 MG Baclofen 10 mg Q8HR PO 10/22/25 14:00 10/24/25 05:30 10 MG Methylprednisolone Sodium Succinate 40 mg DAILY IV 10/23/25 10:00 10/24/25 10:03 40 MG Pantoprazole Sodium 40 mg DAILY IV 10/23/25 10:00 10/24/25 10:03 40 MG Diazepam 2 mg Q6HP PRN PO 10/22/25 11:00 10/23/25 10:30 2 MG Morphine Sulfate 2 mg Q4HPRN PRN IV 10/22/25 11:15 Hold Spironolactone 25 mg DAILY PO 10/23/25 10:00 10/24/25 10:05 25 MG Hydralazine HCl 10 mg Q6HP PRN IV 10/22/25 11:15 Nifedipine 90 mg DAILY PO 10/23/25 08:30 10/24/25 10:04 90 MG Meropenem 50 ml @ 17 mls/hr Q8HR IV 10/24/25 14:00 Carvedilol 12.5 mg Q12HR PO 10/24/25 10:15 UNV Examination General Appearance: Alert, Oriented X3, Cooperative, No acute distress HEENT: Atraumatic, PERRLA, EOMI, Mucous membrane moist/pink Respiratory: Clear to auscultation, Normal air movement Cardiovascular: Regular rate, Normal S1, Normal S2, No murmurs, no chest wall tenderness Abdominal: Normal bowel sounds, Soft, No tenderness, No hepatospenomegaly, No masses Extremities: Severe left hip pain, the patient can not extend or move left leg. Skin: No rashes, No breakdown, No significant lesion Neuro: Normal gait, Normal speech, Strength at 5/5 X4 ext, Normal tone, Sensation intact, Cranial nerves 3-12 NL, Reflexes 2+ Psych/Mental Status: Mental status NL, Mood NL laboratory and microbiology Laboratory Tests 10/23/25 17:30 Test 10/23/25 17:30 Range/Units Serum Glucose 130 H 74-106 mg/dL Microbiology Date/Time Source Procedure Growth Status 10/21/25 21:04 Blood Blood Culture - Preliminary Resulted Labs and/or images reviewed: Labs reviewed by me, Image(s) reviewed by me Problem List/Assessment/Plan Problem List/Assessment/Plan History of Stroke with left-sided weakness Hypertensive emergency Hypertensive heart disease Intractable left hip pain Acute complicated UTI Sirs, with end-organ damage History of recent seizures with hospital admission Constipation Medication nonadherence Dyslipidemia * Urinalysis shows, UTI picture * Lactic acidosis raised * Head CT scan performed, showed old changes Plan/recommendation: * Empiric antibiotic, Rocephin * Discontinue Nicardipine drip * Carvedilol 12.5 mg b.i.d., nifedipine 90 mg daily, losartan 100 mg daily, spironolactone 25 mg daily, atorvastatin and aspirin * Hydralazine p.r.n. * Urine culture * Physical therapy evaluation * Ativan p.r.n. for possible seizure * Pain management DIET: Cardiac diet DVT PROPHYLAXIS: Lovenox GI PROPHYLAXIS:: Protonix CODE STATUS: Goal of care discussed for more than 18 minutes, full code DISPOSITION: Telemetry Patient's status and plan discussed with the patient. Case discussed with Dr. Lin. Plan discussed with: Patient, Other (RN) My Orders My Orders Orders - EVANGELINA DAY RESDIENT Procedure Category Date Status Time Comprehensive LAB 10/24/25 Logged Metabolic Panel 04:00 Complete Blood Count LAB 10/24/25 Logged 04:00 Mrsa Screen TANVI 10/23/25 In Process 18:33 Blood Culture TANVI 10/24/25 Logged 09:36 Carvedilol Tablet PHA 10/24/25 Logged (Coreg Tablet) 10:15 Visit Coding STANDARD RES Billing Provider: LIN,ANA T DO Date of Service if different f: Oct 24, 2025 Common Visit Codes: [id number] INP/OBS CARE(HIGH) EVANGELINA DAY RESDIENT Oct 24, 2025 10:20 ANA LIN T DO Oct 25, 2025 21:04
[2025-10-24] MEDS: CARVEDILOL 3.125 MG TAB PO SCH (10:30)
[2025-10-24] MEDS: POLYETHYLENE GLYCOL 17 GM PWDR PO ONE (13:57)
[2025-10-24] MEDS: MEROPENEM 1GM IVPB 50 ML IV SCH (14:10)
[2025-10-24 15:30] LABS: Hematocrit 37.1 % (36.0-46.0); Hemoglobin 12.5 g/dL (12.2-16.2); Mean Corpuscular Hemoglobin 29.8 pg (28.0-32.0); Mean Corpuscular Volume 88.4 fL (80.0-100.0); Nucleated Red Blood Cells % 0.0 %
[2025-10-24 15:43] LABS: Alanine Aminotransferase 12 U/L (7-40); Albumin 4.2 g/dL (3.2-4.8); Alkaline Phosphatase 94 U/L (46-116); Anion Gap 13 (5-15); BUN/Creatinine Ratio 14.4 (10.0-20.0); Bilirubin, Total 0.3 mg/dL (0.2-1.0); Blood Urea Nitrogen 20 mg/dL (9-23); Calcium 10.2 mg/dL (8.7-10.4); Carbon Dioxide 24 mmol/L (20-31); Chloride 103 mmol/L (98-107); Potassium 3.9 mmol/L (3.5-5.1); Sodium 140 mmol/L (136-145); Total Protein 7.4 g/dL (5.7-8.2)
[2025-10-24 15:46] LABS: Glucose 146 mg/dL (74-106)
[2025-10-25] VITALS (8 sets, daily range): BP systolic 151–172; BP diastolic 81–97; PULSE 66–76; RESP 17–20; TEMP 97.4–98.7; O2SAT 93–100
[2025-10-25 09:55] LABS: Hematocrit 36.7 % (36.0-46.0); Hemoglobin 12.5 g/dL (12.2-16.2); Mean Corpuscular Hemoglobin 29.8 pg (28.0-32.0); Mean Corpuscular Volume 87.3 fL (80.0-100.0); Nucleated Red Blood Cells % 0.1 %
[2025-10-25 10:07] LABS: Alkaline Phosphatase 95 U/L (46-116); Anion Gap 12 (5-15); BUN/Creatinine Ratio 14.1 (10.0-20.0); Blood Urea Nitrogen 18 mg/dL (9-23); Calcium 9.9 mg/dL (8.7-10.4); Carbon Dioxide 25 mmol/L (20-31); Chloride 102 mmol/L (98-107); Sodium 139 mmol/L (136-145); Total Protein 7.2 g/dL (5.7-8.2)
[2025-10-25 10:08] LABS: Alanine Aminotransferase < 9 U/L (7-40); Albumin 4.1 g/dL (3.2-4.8); Bilirubin, Total 0.3 mg/dL (0.2-1.0); Glucose 131 mg/dL (74-106); Potassium 3.3 mmol/L (3.5-5.1)
[2025-10-25] MEDS ORDERED: SPIR25TA PO (16:29)
[2025-10-25] MEDS ORDERED: ATOR20TA50 PO (16:29)
[2025-10-25] MEDS ORDERED: NIFE1TAB31 PO (16:29)
[2025-10-25] MEDS ORDERED: CARV-214 PO (16:29)
--- NOTE | 2025-10-25 21:05 | DVHDS2 ---
Discharge Summary Date of Admission Oct 21, 2025 at 23:41 Date of Discharge: Oct 25, 2025 Labs/Diagnostic Data: Laboratory Results Test 10/25/25 09:43 10/22/25 07:18 10/22/25 01:20 10/21/25 23:05 White Blood Count 10.8 10^3/uL (4.4-10.8) Red Blood Count 4.20 10^6/uL (4.0-5.20) Hemoglobin 12.5 g/dL (12.2-16.2) Hematocrit 36.7 % (36.0-46.0) Mean Corpuscular Volume 87.3 fL (80.0-100.0) Mean Corpuscular Hemoglobin 29.8 pg (28.0-32.0) Mean Corpuscular Hemoglobin Concent 34.1 g/dL (32.0-36.0) Red Cell Distribution Width 13.4 % (11.8-14.3) Platelet Count 370 10^3/uL (140-450) Mean Platelet Volume 7.1 fL (6.9-10.8) Neutrophils (%) (Auto) 73.4 % (37.0-80.0) Lymphocytes (%) (Auto) 16.2 % (10.0-50.0) Monocytes (%) (Auto) 10.0 % (0.0-12.0) Eosinophils (%) (Auto) 0.2 % (0.0-7.0) Basophils (%) (Auto) 0.2 % (0.0-2.0) Neutrophils # (Auto) 7.9 10 ^3/uL (1.6-8.6) Lymphocytes # (Auto) 1.7 10 ^3/uL (0.4-5.4) Monocytes # (Auto) 1.1 10 ^3/uL (0-1.3) Eosinophils # (Auto) 0 10 ^3/uL (0-0.8) Basophils # (Auto) 0 10 ^3/uL (0-0.2) Nucleated Red Blood Cells 0.1 % Sodium Level 139 mmol/L (136-145) Potassium Level 3.3 mmol/L (3.5-5.1) Chloride Level 102 mmol/L (98-107) Carbon Dioxide Level 25 mmol/L (20-31) Anion Gap 12 (5-15) Blood Urea Nitrogen 18 mg/dL (9-23) Creatinine 1.28 mg/dL (0.550-1.02) Glomerular Filtration Rate Calc 49 mL/min (>90) BUN/Creatinine Ratio 14.1 (10.0-20.0) Serum Glucose 131 mg/dL (74-106) Calcium Level 9.9 mg/dL (8.7-10.4) Total Bilirubin 0.3 mg/dL (0.2-1.0) Aspartate Amino Transferase (AST) < 8 U/L (13-40) Alanine Aminotransferase (ALT) < 9 U/L (7-40) Alkaline Phosphatase 95 U/L (46-116) Total Protein 7.2 g/dL (5.7-8.2) Albumin 4.1 g/dL (3.2-4.8) Vitamin B12 Level 1194 pg/mL (211-911) Vitamin D 25-Hydroxy 42.9 ng/mL (30.0-100) Thyroid Stimulating Hormone (TSH) 0.69 uIU/mL (0.55-4.78) Urine Color Colorless (Yellow) Urine Clarity Turbid (Clear) Urine pH 5.5 (5.0-9.0) Urine Specific [place] 1.014 (1.001-1.035) Urine Protein Negative (Negative) Urine Ketones Negative (Negative) Urine Blood 1+ /uL (Negative) Urine Nitrite Negative (Negative) Urine Bilirubin Negative (Negative) Urine Urobilinogen Normal mg/dL (Negative) Urine Leukocyte Esterase 2+ /uL (Negative) Urine RBC 10 /hpf (0 - 4) Urine Microscopic WBC 8 /HPF (0-5) Urine Squamous Epithelial Cells Mod /hpf (<5) Urine Bacteria Many /hpf (None Seen) Urine Mucus Few (None Seen) Urine Glucose Normal mg/dL (Normal) Urine Opiates Screen Neg (NEGATIVE) Urine Fentanyl Screen Neg (NEGATIVE) Urine Barbiturates Screen Neg (NEGATIVE) Urine Phencyclidine Screen Neg (NEGATIVE) Urine Amphetamines Screen Neg (NEGATIVE) Urine Benzodiazepines Screen Neg (NEGATIVE) Urine Cocaine Screen Neg (NEGATIVE) Urine Cannabinoids Screen Neg (NEGATIVE) Lactic Acid Level 1.9 mmol/L (0.4-2.0) Test 10/21/25 21:04 Prothrombin Time 10.2 sec (9.3-11.8) Prothrombin Time INR 0.96 (0.9-1.15) Activated Partial Thromboplast Time 26.2 SEC (24.5-34.5) Magnesium Level 1.8 mg/dL (1.6-2.6) Other Laboratory Tests 10/25/25 09:43 Brief Hx & Hospital Course: History of Stroke with left-sided weakness Hypertensive emergency Hypertensive heart disease Intractable left hip pain Acute complicated UTI Sirs, with end-organ damage History of recent seizures with hospital admission Constipation Medication nonadherence Dyslipidemia * Urinalysis shows, UTI picture * Lactic acidosis raised * Head CT scan performed, showed old changes Plan/recommendation: discharged to home however, pt needs HH resumed DIET: Cardiac diet DVT PROPHYLAXIS: Lovenox GI PROPHYLAXIS:: Protonix CODE STATUS: Goal of care discussed for more than 18 minutes, full code DISPOSITION: Telemetry Condition at Discharge: Fair Final Diagnosis/Problems List see above Discharge Disposition: Home Discharge Instruct/Medications Diet: Cardiac 2g Na,low cholest Activity: No Restrictions, As Tolerated Scheduled Amlodipine Besylate (Amlodipine Besylate), 1 TAB PO DAILY Atorvastatin Calcium (Atorvastatin Calcium), 80 MG PO HS Carvedilol (Coreg), 12.5 MG PO Q12HR Losartan Potassium (Losartan Potassium), 1 TAB PO DAILY Nifedipine (Nifedipine Er), 90 MG PO DAILY Spironolactone (Aldactone), 25 MG PO DAILY Scheduled PRN Baclofen (Baclofen), 10 MG PO Q8HP PRN for FOR MUSCLE SPASM, (Reported) Miscellaneous Medications Hydrocodone-Acetaminophen (Hydrocodone Bitartrate/AC 5-325 mg), 1 TAB PO, (Reported) Discharge Statement: "Patient was advised to return to the ER or call 911 if any headaches, dizziness, shortness of breath, chest pain, abdominal pain, bleeding, fevers, or worsening of medical condition. Patient was counseled about treatment plan, medications, possible side effects, patientverbalized understanding. All questions were answered to the best of my ability. This discharge took greater then 30 minutes in planning, reviewing documentation, counseling the patient, and discussing with other team members." ASSESSMENT ASSESSMENT Assessment Date of Service: Oct 25, 2025 Billing Provider: ANA LIN DO Common Visit Codes: [id number] DISCH DAY >30min ANA LIN DO Oct 25, 2025 21:05
[2025-10-26 01:00] VITALS: BP_SYST 142; BP_SYST 163; BP_SYST 166; BP_DIAS 112; BP_DIAS 115; BP_DIAS 95; PULSE 74; RESP 17; TEMP 98.5; O2SAT 99
[2025-10-26 05:00] VITALS: BP 147/86; PULSE 69; RESP 17; TEMP 98.3; O2SAT 99
[2025-10-26 08:00] VITALS: PULSE 58; PULSE 68; RESP 18; O2SAT 100
[2025-10-26 09:00] VITALS: BP 115/93; PULSE 68; RESP 16; TEMP 97.7; O2SAT 100
[2025-10-26] MEDS: POTASSIUM CHL 20 Meq TABLET PO ONE (09:43)
[2025-10-26] MEDS: Ensure HIGH Protein Vanilla 8oz Bottle PO SCH (12:03)
[2025-10-26 12:52] VITALS: BP 126/93; PULSE 55; RESP 16; TEMP 98.3; O2SAT 95
[2025-10-26 17:00] VITALS: BP 128/90; PULSE 58; RESP 16; TEMP 98.1; O2SAT 94
--- NOTE | 2025-10-26 18:03 | DVHPNRES ---
Progress Note Date Seen: Oct 26, 2025 Resident Creating Document: PERICO BOURNE RESIDENT Medical Necessity Reason Pt with a Central, PICC or Fol: No Subjective Review of Systems Patient was seen today at bedside Labs and chart reviewed No acute complaint Patient was discharged last night but still due to delay in the resuming home health for physical therapy Patient was scheduled to go home today, transportation arranged Objective vital signs Vital Sign Date Time Temp Pulse Resp B/P (MAP) Pulse Ox O2 Delivery O2 Flow Rate FiO2 10/26/25 17:00 98.1 58 16 128/90 (103) 94 98.1 10/26/25 08:00 Room Air* 0 21 Total Intake and Output 10/25/25 10/25/25 10/26/25 15:00 23:00 07:00 Intake Total 50 ml 500 ml 500 ml Balance 50 ml 500 ml 500 ml medications Current Medications Medications Dose Ordered Sig/Julienne Route Start Time Stop Time Status Last Admin Dose Admin Lactulose 15 ml DAILY PO 10/22/25 10:00 10/24/25 10:04 15 ML Losartan Potassium 100 mg DAILY PO 10/22/25 10:00 10/26/25 09:42 100 MG Acetaminophen 650 mg Q6HR PO 10/22/25 12:00 10/26/25 05:59 650 MG Ketorolac Tromethamine 15 mg Q6HPRN PRN IV 10/22/25 08:15 10/27/25 08:14 10/24/25 17:15 15 MG Lorazepam 1 mg Q5MINP PRN IV 10/22/25 09:45 Atorvastatin Calcium 80 mg HS PO 10/23/25 22:00 10/25/25 22:01 80 MG Enoxaparin Sodium 40 mg DAILY SC 10/22/25 10:00 10/26/25 09:40 40 MG Aspirin 81 mg DAILY PO 10/22/25 10:00 10/26/25 09:41 81 MG Baclofen 10 mg Q8HR PO 10/22/25 14:00 10/26/25 05:59 10 MG Methylprednisolone Sodium Succinate 40 mg DAILY IV 10/23/25 10:00 10/25/25 10:00 40 MG Pantoprazole Sodium 40 mg DAILY IV 10/23/25 10:00 10/25/25 09:59 40 MG Diazepam 2 mg Q6HP PRN PO 10/22/25 11:00 10/26/25 01:07 2 MG Morphine Sulfate 2 mg Q4HPRN PRN IV 10/22/25 11:15 Hold Spironolactone 25 mg DAILY PO 10/23/25 10:00 10/26/25 09:42 25 MG Hydralazine HCl 10 mg Q6HP PRN IV 10/22/25 11:15 Nifedipine 90 mg DAILY PO 10/23/25 08:30 10/26/25 09:42 90 MG Meropenem 50 ml @ 17 mls/hr Q8HR IV 10/24/25 14:00 10/25/25 05:19 17 MLS/HR Carvedilol 12.5 mg Q12HR PO 10/24/25 10:15 10/26/25 09:41 12.5 MG Enteral Nutritional Formula 240 ml TIDWM PO 10/26/25 12:00 10/26/25 12:03 240 ML laboratory and microbiology Laboratory Tests 10/25/25 09:43 Test 10/25/25 09:43 Range/Units Serum Glucose 131 H 74-106 mg/dL Microbiology Date/Time Source Procedure Growth Status 10/24/25 15:45 Blood Blood Culture - Preliminary NO GROWTH AFTER 48 HOURS OF INCUBATION. Resulted 10/23/25 11:41 Nose MRSA Screen - Final Complete Problem List/Assessment/Plan Problem List/Assessment/Plan Assessment and plan History of Stroke with left-sided weakness Hypertensive emergency Hypertensive heart disease Intractable left hip pain Acute complicated UTI Sirs, with end-organ damage History of recent seizures with hospital admission Constipation Medication nonadherence Dyslipidemia Plan * Empiric antibiotic, Rocephin * Discontinue Nicardipine drip * Carvedilol 12.5 mg b.i.d., nifedipine 90 mg daily, losartan 100 mg daily, spironolactone 25 mg daily, atorvastatin and aspirin * Hydralazine p.r.n. * Urine culture * Physical therapy evaluation * Ativan p.r.n. for possible seizure * Pain management DIET: Cardiac diet DVT PPX Lovenox GI ppx:: Protonix CODE STATUS: Goal of care discussed for more than 18 minutes, full code Patient's status and plan discussed with the patient. Case discussed with Dr. Joseph Plan discussed with: Patient, Other (RN) My Orders My Orders Orders - PERICO BOURNE RESIDENT Procedure Category Date Status Time Nutritional PHA 10/26/25 In Process Supplements (Ensure 12:00 Discharge DISCHARGE 10/26/25 Transmitted 13:22 Visit Coding STANDARD RES Billing Provider: RAIMUNDO GOYAL MD Date of Service if different f: Oct 26, 2025 Common Visit Codes: [id number] INP/OBS CARE(HIGH) PERICO BOURNE RESIDENT Oct 26, 2025 18:03
== END 2025-10-26 19:54 | disposition home health service (06) | DRG 351 ==
LOC: EDBD 20:27 → ER 20:27 → OVERFLOW 23:41 → ICU CENTRL 10-23 11:53 → TELE-WESTW 10-24 18:30
PROVIDERS: ADMIT Student in an Organized Health Care Education/Training Program; ATTEND Student in an Organized Health Care Education/Training Program
DX: M16.12 Unilateral primary osteoarthritis, left hip (principal); E87.20 Acidosis, unspecified; R65.11 Systemic inflammatory response syndrome (SIRS) of non-infectious origin with acute organ dysfunction; I16.1 Hypertensive emergency; I69.354 Hemiplegia and hemiparesis following cerebral infarction affecting left non-dominant side; N30.01 Acute cystitis with hematuria; K59.00 Constipation, unspecified; E78.5 Hyperlipidemia, unspecified; G89.29 Other chronic pain; I11.9 Hypertensive heart disease without heart failure; Z74.01 Bed confinement status; Z91.148 Patient's other noncompliance with medication regimen for other reason; Z88.5 Allergy status to narcotic agent
CPT/HCPCS: 36415; 70450; 71045; 73502; 80053; 80307; 81001; 82306; 82607; 83605; 83735; 84443; 85025; 85610; 85730; 87040; 87077; 87081; 87186; 93005; 96361; 96374; 97163; 99291; G0378; J1885; J2185; J2470